=== PATIENT | female | born 1940 | race Caucasian/White ===

== ENCOUNTER → 2017-04-03 | Outpatient (CLI) | payer OTHER ==
[~2017-04-03] VITALS: Ht 152.4 cm; Wt 87.1 kg
[~2017-04-03] MED LIST: AMLODIPINE BESY10 MG PO; ASPIRIN81 M2 PO; BUMEX PO; CALCIUM; CALCIUM PO; CELEBREX 200 M200 MG PO; COLACE1 EAC1; COZAAR 50 MG TA50 M1 PO; CYMBALTA30 MG PO; DILTIAZEM 24HR240 M1 PO; DULCOLAX5 MG PO; FEXOFENADINE H180 MG PO; FISH OIL 1,2001 EAC4 PO; FLEXERIL PO; HAIR, SKIN & N1 EAC1 PO; HYDROCHLOROTHIA25 M1 PO; KETOCONAZOLE; KLOR-CON 10 ER10 MEQ PO; LIORESAL 10 MG10 MG PO; MEDROLDOSEPACK PO; METOCLOPRAMIDE10 MG PO; MOBIC15 MG PO; MOBIC7.5 MG PO; MORPHINE SULFAT15 M1 PO; MS CONTIN 30 MG30 M1 PO; MS CONTIN15 MG PO; MS CONTIN30 MG PO; MULTIVITAMINS PO; NEXIUM40 MG PO; NYSTATIN1 EA10 MC; NYSTATIN15 GM TP; PERCOCET 5-3251 EACH PO; PRAVASTATIN SOD20 MG PO; RANITIDINE HCL300 M1 PO; RESTASIS1 EACH OPHTHALMIC; SERTRALINE HCL100 MG PO; STOOL SOFTNER; TRAZODONE HCL50 MG PO; VITAMIN D2000 UNIT PO; VOLTAREN GEL 1100 G2 TOP; ZANAFLEX4 M1 PO; ZOLOFT 50 MG TA50 M1 PO; [UNRECOGNIZED DRUG - CODE] PO
--- NOTE | ~2017-04-03 | OD ---
[facility] [place] [address] DELIVERY NOTE Name: MAMADOU CAPONE Room #: REG JOSE BarbaAshwin#: [id number] Admission: 04/03/17 Attend Phys: Tad Harding MD Discharge: Date of : 40 Report #: [id number] THIS REPORT FOR: //name// CC: Cora Harding DATE OF SERVICE: 04/03/2017 FOLLOWUP COMPLAINT: Doing pretty good. I am going to have surgery on 05/02 for prolapse colon. FOLLOWUP HISTORY: The patient is a very pleasant 76-year-old female, who has been followed in the pain clinic for a number of years. She has pain and discomfort secondary to lumbar radiculopathy and is treated with opioid therapy. She has found that the pain medications continue to be helpful. They enable her to engage in activities of daily living. She would not be able to participate use. She is having no untoward side effects. She has taken her medications as prescribed. She is having some problems with her colon. She has a prolapse colon and is scheduled to have surgery in 05/02. She continues to use her motorized wheelchair when out and about, and ambulates at home. She has not fallen in the last 3 months. PHYSICAL EXAMINATION: VITAL SIGNS: Blood pressure 130/76, pulse 63, respiratory rate 18, and room air saturations 98%. Height is 5 feet and weight is 87 kilograms. BMI is 37. MUSCULOSKELETAL: The patient has pain and discomfort in her back, with pain radiating down to the right leg, has some pain in the groin area as well. This pain wraps around to the front of her leg and the knee down into the big toe and foot on the right. She has some discomfort in both shoulders. Denies any constipation or drowsiness. IMPRESSION: 1. Chronic pain in the low back area, with opioid therapy. 2. Colon prolapse, scheduled for surgery on 05/02. 3. Hypercholesterolemia. 4. Hypertension. By: [id number] Tad Harding MD /nt
[2017-04-03 10:27] VITALS: BP 130/76
== END ==
LOC: PAIN 03-22 07:12
DX: G89.29 Other chronic pain (principal); E78.00 Pure hypercholesterolemia, unspecified; I10 Essential (primary) hypertension

== ENCOUNTER → 2017-08-21 | Outpatient (CLI) | payer OTHER ==
[~2017-08-21] VITALS: Ht 152.4 cm; Wt 84.4 kg
--- NOTE | ~2017-08-21 | HPC ---
[facility] [place] [address] PAIN MANAGEMENT CONSULTATION Name: MAMADOU CAPONE Room #: REG JOSE Asael#: [id number] Admission: 08/21/17 Attend Phys: Tad Harding MD Discharge: Date of : 40 Report #: [id number] THIS REPORT FOR: //name// CC: Coar Harding DATE OF SERVICE: 08/21/2017 FOLLOWUP COMPLAINT: Things are going good. Here for medications. FOLLOWUP HISTORY: The patient is a 76-year-old female who has been followed in the pain clinic because of chronic pain. She suffers from chronic low back pain. As you recall, she has history of lumbar radiculopathy. She rates her pain as a 6/10. She has some pain in her low back area, pain in her right leg. She feels that her medications are helpful. She continues to take the medications as prescribed. She is having no complications or problems with her medicines. She continues to use a motorized wheelchair. She has not fallen in the last 3 months. PHYSICAL EXAMINATION: Blood pressure 152/80, pulse 52, respiratory rate 18, room air saturation 97%. Height 5 feet, weight 186 pounds, BMI is 36. The patient has pain and discomfort in the lower portion of her back with pain radiating down into her right leg. She has some pain in both shoulders. There is some pain in her right groin. She notes that the pain intensity can be exacerbated by prolonged sitting, bending, and activities of daily living. IMPRESSION: 1. Chronic low back pain with history of lumbar radiculopathy treated with opioid therapy. 2. Hypercholesterolemia. 3. Hypertension. RECOMMENDATIONS: We will continue with her current medical regimen of MS Contin 15 mg 1 p.o. t.i.d. and Percocet 5/325 one p.o. b.i.d. The patient takes 2 tablets at that juncture. She will call us if she has any problems with her medications. We would like to thank you for letting us to participate in her care. We hope she continues to improve. <ELECTRONICALLY SIGNED> By: Tad Harding MD 08/23/17 0826 [id number] Tad Harding MD /[facility]
[2017-08-21 11:29] VITALS: BP 152/80
== END ==
LOC: PAIN 07:34
DX: M54.5 Low back pain (principal); I10 Essential (primary) hypertension; E78.00 Pure hypercholesterolemia, unspecified

== ENCOUNTER → 2017-12-27 | Outpatient (CLI) | payer OTHER ==
[~2017-12-27] VITALS: Ht 152.4 cm; Wt 79.4 kg
--- NOTE | ~2017-12-27 | HPC ---
[facility] [place] [address] PAIN MANAGEMENT CONSULTATION Name: MAMADOU CAPONE Room #: REG JOSE McintoshAshwinZariAshwin#: [id number] Admission: 12/27/17 Attend Phys: Tad Harding MD Discharge: Date of : 40 Report #: [id number] THIS REPORT FOR: //name// CC: Cora Harding DATE OF SERVICE: 12/27/2017 FOLLOWUP COMPLAINT: Here for the medications and I am doing pretty good. FOLLOWUP HISTORY: The patient is a 77-year-old female, who has been followed in the Pain Clinic for quite a number of years. As you recall, she has chronic low back pain. Pain has been quite problematic and has reduced her to ambulate in a motorized wheelchair. She feels that her medications continue to be helpful. She has had no complications from their use since we saw her last. She finds that they continue to enable her to engage in activities of daily living, she would not be not be able to participate in without them. She has had no untoward side effects. She feels her mentation is clear. She rates her pain as an 8/10 today. Continues to have some pain in the right groin and right leg and describes as stabbing, burning and cramping and this is exacerbated with prolonged sitting as well as with bending. ALLERGIES: SULFA, LISINOPRIL, ATARAX, VISTARIL, HYDRALAZINE, LASIX. CURRENT MEDICAL REGIMEN: Percocet 5/325 one p.o. b.i.d., morphine sulfate 15 mg 1 p.o. t.i.d., Restasis 1 drop per eye b.i.d., trazodone 50 mg at bedtime, meloxicam 7.5 mg b.i.d., nystatin cream 15 g topical as needed, Dulcolax 5 mg daily, sertraline 100 mg daily, multivitamin, vitamin D3, baclofen 10 mg q.i.d., pravastatin 20 mg daily, fish oil 1200 mg, amlodipine 10 mg, ranitidine 300 mg, Nexium 40 mg, multivitamin. PAIN CLINIC ASSESSMENT: 1. History of osteoarthritis involving the lower extremities, right and left, not treated for rheumatoid arthritis. 2. Height 5 feet 0 inches, weight 175 pounds, BMI is 34. 3. Vital signs: Blood pressure 149/71, pulse 52, respiratory rate 16, room air saturation 98%. 4. Pain intensity: 8/10. 5. Fall risk: The patient has not fallen. She continues to use her wheelchair. She does need help with standing and walking. 6. Blood thinners: The patient is not on a blood thinner. 7. History of hypertension: The patient is currently being treated for hypertension. 8. Opioid therapy greater than 6 weeks: The patient has signed a contract with [address] [address] PAIN MANAGEMENT CONSULTATION Name: LIBORIOMAMADOU [facility] [id number] Admission: 12/27/17 Attend Phys: Tad Harding MD Discharge: Date of : 40 Report #: [id number] the Pain Clinic in regards to opioid use. 9. Risk assessment tool. 10. Functional assessment tool. 11. Recreational drugs: The patient never uses recreational drugs. 12. Tobacco: The patient has never smoked. 13. Alcohol: The patient denies use of alcoholic beverages. PHYSICAL EXAMINATION: GENERAL: The patient is a well-developed white female. She is slightly obese. The patient appears her stated age. ORIENTATION: The patient is alert and oriented x 3. AFFECT: The patient's affect is appropriate. HEENT: Normocephalic, atraumatic. Extraocular eye muscles intact. Nasal area is without complaint of congestion. Hearing within normal limits. NECK: Without masses or adenopathy. LUNGS: Clear to auscultation. HEART: Regular. ABDOMEN: Protuberant. MUSCULOSKELETAL: Generally normal alignment without significant kyphosis, scoliosis or lordosis. The patient is in an electric wheelchair. Muscle strength in the lower extremity is 4/5 in major muscle groups. Muscle bulk appears symmetrical. IMPRESSION: 1. The patient has pain and discomfort radiating down into the low back area as well as pain radiating to the right leg and the right groin as well as some shoulder discomfort. 2. History of surgery colon prolapse, status post surgery. 3. Hypercholesterolemia. 4. Hypertension. RECOMMENDATIONS: We discussed treatment options with the patient. She will continue with her current medications. States that she is trying to improve her muscle strength to the lower extremities by using a bicycle, which let her propel it while lying on the floor. She will call us if she has any problems with her medications. Overall, things have been going very well with the patient. We have had no problems with her misusing medication. She is always on time. We will provide her with 3 months of Percocet 5/325 one p.o. b.i.d., a total of 120; MS Contin 15 mg t.i.d., a total of 90. She will continue with Percocet 5/325 1-2 tablets p.o. b.i.d. at this juncture. She will call us if she has any problems with her medications. [facility] [address] [place] [address] PAIN MANAGEMENT CONSULTATION Name: MAMADOU CAPONE Room #: REG [facility] Asael#: [id number] Admission: 12/27/17 Attend Phys: Tad Harding MD Discharge: Date of : 40 Report #: [id number] We would like to thank you for letting us participate in her care. Hope she continues to improve. <ELECTRONICALLY SIGNED> By: Tad Harding MD 01/24/18 0811 1352 0235 Tad Harding MD /nt
[2017-12-27 11:12] VITALS: BP 149/71
== END ==
LOC: PAIN 07:12
DX: M54.5 Low back pain (principal); G89.29 Other chronic pain; E78.00 Pure hypercholesterolemia, unspecified; I10 Essential (primary) hypertension; M19.90 Unspecified osteoarthritis, unspecified site; Z79.891 Long term (current) use of opiate analgesic

== ENCOUNTER → 2018-03-28 | Outpatient (CLI) | payer OTHER ==
[~2018-03-28] VITALS: Ht 152.4 cm; Wt 82.4 kg
--- NOTE | ~2018-03-28 | HPC ---
[facility] [address] [place] [address] PAIN MANAGEMENT CONSULTATION Name: LIBORIOMAMADOU Trinh Room #: REG JOSE Vyas#: [id number] Admission: 03/28/18 Attend Phys: Tad Harding MD Discharge: Date of : 40 Report #: [id number] THIS REPORT FOR: //name// CC: Cora Harding DATE OF SERVICE: 03/28/2018 FOLLOWUP COMPLAINT: Things are going pretty well and I am here for medication. FOLLOWUP HISTORY: The patient is a 77-year-old female who has been followed in the pain clinic. As you recall, she has chronic low back pain. She ambulates with use of a motorized wheelchair. Has pain and discomfort, which radiates down into her legs. She has undergone in the past epidural steroid injections. After they were no longer effective, she has been treated with opioid regimen. Finds that her medications continue to be helpful. Has some pain and discomfort in her low back with pain down into the right groin, right leg. Also, notes some arthritic changes and discomfort in her shoulders. Notes a burning, stabbing, cramping discomfort and rates her pain overall as a 4/5. Pain is exacerbated by sitting and bending. improves with repositioning. ALLERGIES: SULFA. MEDICATIONS: Lisinopril, Atarax, Vistaril, hydralazine, Lasix. CURRENT MEDICATIONS: Percocet 5/325 one p.o. b.i.d., morphine sulfate 15 mg 1 p.o. t.i.d., Restasis eye drops b.i.d., trazodone 50 mg at bedtime, Meloxicam 7.5 mg b.i.d., nystatin cream 15 mg topical as needed, Dulcolax 5 mg daily, sertraline 100 mg daily, multivitamin, vitamin D3, baclofen 10 mg q.i.d., pravastatin 20 mg daily, fish oil 200 mg, amlodipine 10 mg, ranitidine 300 mg, Nexium 40 mg and multivitamin. PAIN CLINIC ASSESSMENT: 1. History of osteoarthritis involving lower extremities, right and left. The patient is not being treated for rheumatoid arthritis. 2. Height 5 feet 0 inches, weight 181 pounds, BMI is 35. PHYSICAL EXAMINATION: 1. Blood pressure 158/84, pulse 52, respiratory rate 14, room air saturation 96%. 2. Pain intensity 10. 3. Fall risk. The patient has some need for help with walking. She has not fallen in the last 3 months. 4. The patient is not on a blood thinner. 5. History of hypertension. The patient is being treated for hypertension. 6. Opioid therapy greater than 6 weeks. The [place] [address] PAIN MANAGEMENT CONSULTATION Name: MAMADOU CAPONE Trinh Room #: REG CL Asael#: [id number] Admission: 03/28/18 Attend Phys: Tad Harding MD Discharge: Date of : 40 Report #: [id number] pain clinic that she gets her medication from only one source. 7. Risk assessment tool, low at 2/3. 8. Functional assessment tool 33 indicating moderate problems with activities of daily living secondary to her pain. 9. Recreational drug use. The patient denies use of recreational drugs. 10. Tobacco: The patient has never smoked. 11. Alcohol frequency. The patient denies use of alcoholic beverages. PHYSICAL EXAMINATION: GENERAL: The patient is a well-developed white female. She appears stated age. She is slightly obese. She is sitting in her motorized wheelchair. Affect is appropriate. HEENT: Normocephalic, atraumatic. Extraocular eye muscles intact. Nasal area moist without complaints of congestion. Hearing within normal limits. NECK: Without masses or adenopathy. LUNGS: Clear to auscultation without rhonchi or rales. HEART: Regular rate. S1, S2. ABDOMEN: Protuberant. MUSCULOSKELETAL: Without significant kyphosis, scoliosis or lordosis. The patient is in her electric wheelchair. Muscle strength in lower extremities, 4/5 for the major muscle groups. Muscle bulk appears symmetrical. IMPRESSION: 1. The patient has pain and discomfort radiating down to low ____ back area as well as pain radiating down to her right leg in the groin. Has some shoulder discomfort. 2. History of surgery for colon prolapse, status post surgery, stable at this juncture. 3. Hypercholesterolemia. 4. Hypertension. RECOMMENDATIONS: We discussed treatment options with the patient. We will continue with her current medical regimen. She feels that it is working reasonably well. She is having no problems. Rates her pain as a 4-5. We will renew her medications. A script for oxycodone 5/325 two tabs p.o. b.i.d., total of 120 have been written. Morphine sulfate 15 mg p.o. t.i.d. have been written. Total of 90 per month. Total of 3 months medication has been dispensed. She will call us if she has any problems in the interim. We would like to thank you for letting us participate in her care. We hope she continues to improve. By: [id number] MD sienna Larose
[2018-03-28 10:06] VITALS: BP 158/84
== END ==
LOC: PAIN 07:30
DX: G89.29 Other chronic pain (principal); M54.16 Radiculopathy, lumbar region; E78.00 Pure hypercholesterolemia, unspecified; I10 Essential (primary) hypertension; Z88.2 Allergy status to sulfonamides; Z79.899 Other long term (current) drug therapy

== ENCOUNTER → 2018-05-21 | Outpatient (CLI) | payer OTHER ==
[~2018-05-21] VITALS: Ht 152.4 cm; Wt 82.6 kg
--- NOTE | ~2018-05-21 | HPC ---
[facility] [place] [address] [place] [address] PAIN MANAGEMENT CONSULTATION Name: MAMADOU CAPONE Trinh Room #: REG JOSE Vyas#: [id number] Admission: 05/21/18 Attend Phys: Tad Harding MD Discharge: Date of : 40 Report #: [id number] THIS REPORT FOR: //name// CC: Cora Harding DATE OF SERVICE: 05/21/2018 CHIEF COMPLAINT: "I have noticed some worsening of pain. I was doing some cleaning at home and I twisted and hurt my back. FOLLOWUP HISTORY: The patient is a 77-year-old female who has been followed in the pain clinic for quite a number of years. As you recall, she has some problems with her low back. She has undergone epidural steroid injections in the past. They felt to be efficacious. She has been treated at this juncture with continued opioid therapy. She finds that that has been effective. She states that she was cleaning her house. Does not recall any significant activity, but has noted some wrenching of her back. She has noted pain, which has been more problematic over the last 1-2 weeks. She is having pain, which she rates as an 8-9. It is cramping, burning and stabbing. Bending, sitting and other activities of daily living are more problematic. Also, has pain and discomfort in her shoulders, knees, right groin and right leg. She would like to continue with her current medications. She would like to have her medications modified over the next month to see whether or not she would be able to continue being active with less pain and discomfort. ALLERGIES: SULFA, LISINOPRIL, ATARAX, VISTARIL, HYDRALAZINE, LASIX. CURRENT MEDICATIONS: Percocet 5/325 one p.o. b.i.d., morphine sulfate 15 mg 1 p.o. t.i.d., Restasis eye drops b.i.d., trazodone 50 mg at bedtime, meloxicam 7.5 mg b.i.d., nystatin cream 15 mg topical as needed, Dulcolax 5 mg, sertraline 100 mg daily, multivitamins, vitamin D3, baclofen 10 mg q.i.d., pravastatin 20 mg, fish oil 200 mg, amlodipine 10 mg, ranitidine 300 mg, Nexium 40 mg, and multivitamins. PAIN CLINIC ASSESSMENT: 1. History of osteoarthritis involving lower extremities, right and left. The patient is not being treated for rheumatoid arthritis. 2. Height 5 feet 0 inches. Weight 182 pounds, BMI is 35.5. 3. VITAL SIGNS: Blood pressure 163/73, pulse 50, respiratory rate 16, room air saturation is 100%. 4. Pain intensity 8-9/10. 5. Fall risk. The patient has not fallen in the last 3 months. 6. Blood thinner. The patient is not on a blood thinning medication. 7. Hypertension. The patient is being treated for hypertension. 8. Opioid therapy greater than 6 weeks. The patient is on opioid therapy and [address] [address] PAIN MANAGEMENT CONSULTATION Name: MAMADOU CAPONE Trinh Room #: REG ANAEmily Vyas#: [id number] Admission: 05/21/18 Attend Phys: Tad Harding MD Discharge: Date of : 40 Report #: [id number] gets her medication from one source. 9. Risk assessment tool 2-3, low for use of opioids. 10. Functional assessment tool . 11. Recreational drug use. The patient denies use of recreational drugs. 12. Tobacco: The patient has never smoked. 13. Alcohol: The patient denies use of alcoholic beverages. PHYSICAL EXAMINATION: GENERAL: The patient is a well-developed, well-nourished white female. She appears her stated age. She is slightly overweight. She is sitting in her motorized wheelchair. Her affect is appropriate. She does look somewhat despondent. She states her pain is worse. HEENT: Normocephalic, atraumatic. Extraocular eye muscles are intact. Nasal mucosa without problem. Sclerae nonicteric. Hearing is within normal limits. NECK: Without adenopathy or masses. NECK: No JVD. LUNGS: Clear to auscultation without rhonchi or rales. HEART: Regular rate. S1, S2. ABDOMEN: Protuberant. MUSCULOSKELETAL: Without significant kyphosis, scoliosis or lordosis. The patient is sitting in her electric wheelchair. Upper muscle strength is judged to be 4+/5 for the upper extremities and 4/5 for the lower muscle area in the lower extremities. IMPRESSION: 1. Worsening of pain and discomfort with wrenching of her back doing home activities. 2. History of surgery for colon prolapse status post surgery. 3. Hypercholesterolemia. 4. Hypertension. RECOMMENDATIONS: We discussed treatment option with the patient. The patient feels that her pain has been quite problematic. She would like to have an additional change in her opioid medications for the next few weeks to help get over this pain. We will give her a Medrol Dosepak to note its efficacy. Risks and benefits of opioids were again reviewed. The patient is aware that chronic use of opioid medications can rule them less effective because of chronic use. She would like to continue with her medications. A script BuSpar 15 mg, morphine 2 tablets a.m., 1 midday, 1 in the evening has been provided for the next month. She will take the Medrol Dosepak and note its efficacy. She will call us if she has any problems. [facility] [address] [place] [address] PAIN MANAGEMENT CONSULTATION Name: LIBORIOMAMADOU Room #: [facility] [id number] Admission: 05/21/18 Attend Phys: Tad Harding MD Discharge: Date of : 40 Report #: [id number] We would like to thank you for letting us participate in her care. We hope she continues to improve. <ELECTRONICALLY SIGNED> By: Tad Harding MD 05/23/18 1631 1143 1829 Tad Harding MD /nt
[2018-05-21 10:46] VITALS: BP 163/73
== END ==
LOC: PAIN 06:26
DX: M54.5 Low back pain (principal); E78.00 Pure hypercholesterolemia, unspecified; I10 Essential (primary) hypertension; Z79.891 Long term (current) use of opiate analgesic

== ENCOUNTER → 2018-10-29 | Outpatient (CLI) | payer OTHER ==
[~2018-10-29] VITALS: Ht 152.4 cm; Wt 87.1 kg
[~2018-10-29] MED LIST changes: -SERTRALINE HCL100 MG PO; +ZOLOFT100 MG PO
[2018-10-29 11:19] VITALS: BP 158/71
--- NOTE | 2018-10-29 11:27 | NUR ---
Pain Clinic Assessment: 1. History of Osteoarthritis: Left Lower Extremity Right Lower Extremity History of Rheumatoid Arthritis: Not Applicable 2. Height: 5 ft. 0 in. 152.4 cm. Weight: 192.0 lb. oz. 87.091 kg. Patient's BMI: 37.5 3. Vital Signs: BP: 158/71 Pulse: 50 Resp: 14 Temp: 02 Sat: 99 ECG Mon: 4. Pain Intensity: 7 BACK 5. Fall Risk: Dizziness: N Needs help standing or walking: Y Fallen in the last 3 months: N Fall risk comments: SCOOTER 6. Patient on Blood Thinner: None 7. History of Hypertension: Y 8. Opioid Therapy greater than 6 weeks: Y Opiate Contract Signed: 06/07/16 9. Risk Assessment Tool Provided: LOW RISK 2/3 10. Functional Assessment Tool: 11. Recreational Drug Use: Never Drug Type: Tobacco Use: Never Smoker Tobacco Type: Amount or Packs/day: How Many Years: Alcohol Use: No Frequency: Quant:
--- NOTE | 2018-10-31 14:15 | HPC ---
[facility] [place] [address] PAIN MANAGEMENT CONSULTATION Name: MAMADOU CAPONE Room #: REG JOSE McintoshAshwinZariAshwin#: [id number] Admission: 10/29/18 Attend Phys: Tad Harding MD Discharge: Date of : 40 Report #: [id number] THIS REPORT FOR: //name// CC: Cora Harding DATE OF SERVICE: 10/29/2018 FOLLOWUP COMPLAINT: Here for medications and things are going well, "Happy New Year." HISTORY: The patient is a very pleasant 77-year-old female who has been followed in the Pain Clinic. As you recall, she suffers from chronic low back pain. She has undergone epidural steroid injections in the past. They became less fruitful. Since that time, she has been treated with complex medical management for her pain with opioids. She feels overall that things are going reasonably well. She has not had any problems with the medications. Feels that the medication enable her to engage in activities of daily living, she would not be able to without their use. She feels that she continues to think clearly. ALLERGIES: SULFA, LISINOPRIL, ATARAX, VISTARIL, HYDRALAZINE, LASIX. CURRENT MEDICATIONS: Morphine sulfate 15 mg 1 p.o. t.i.d., Percocet 5/325 one p.o. b.i.d., Restasis eye drops b.i.d., trazodone 50 mg at bedtime, Meloxicam 7.5 mg, nystatin cream topical, Dulcolax 5 mg, sertraline 100 mg, multivitamins, vitamin D3, baclofen 10 mg q.i.d., pravastatin 20 mg, fish oil 200 mg, amlodipine 10 mg, ranitidine 300 mg, Nexium 40 mg, and multivitamin. PAIN CLINIC ASSESSMENT/PQRS: 1. The patient has osteoarthritic changes in her left upper extremity as well as her right lower extremity. 2. Rheumatoid arthritis. The patient is not being treated for rheumatoid arthritis. 3. Height 5 feet 0 inches, weight 192 pounds, BMI 37.5. 4. Vital signs: Blood pressure 158/72, pulse 50, respiratory rate 14, and room air saturation is 99%. 5. Pain intensity -06/06. 6. Fall risk. The patient has not fallen in the last 3 months. She does ride a scooter motorized. 7. Blood thinner. The patient is not on a blood thinning medication. 8. Hypertension. The patient is being treated for hypertension. 9. Opioid therapy greater than 6 weeks. The patient is receiving her medications from one source. Does not have any problems with the medication. 10. Risk assessment tool 2-3, low risk for opioid use. 11. Functional assessment tool 33/70. [address] [address] PAIN MANAGEMENT CONSULTATION Name: MAMADOU CAPONE Room #: REG [facility] Asael#: [id number] Admission: 10/29/18 Attend Phys: Tad Harding MD Discharge: Date of : 40 Report #: [id number] 12. Recreational drug use. The patient denies use of recreational drugs. 13. Tobacco: The patient has never smoked. 14. Alcohol: The patient denies use of alcoholic beverages. PHYSICAL EXAMINATION: GENERAL: The patient is a well-developed, well-nourished white female. Appears her stated age. She is alert and oriented x 3. Her affect is appropriate. The patient is interactive. She is in a motorized wheelchair. HEENT: Normocephalic and atraumatic. Extraocular eye muscles intact. Sclerae nonicteric. Mucous membranes are moist. Hearing is within normal limits. NECK: Without adenopathy or JVD. Good range of motion. LUNGS: Clear to auscultation without rhonchi or rales. HEART: Regular rate. S1, S2. ABDOMEN: Protuberant. Bowel sounds present. MUSCULOSKELETAL: Without significant scoliosis, kyphosis, or lordosis. The patient complains of spasms down in the left lateral portion of her back. Has pain in the upper back area as well. Notes pain in the upper extremities, 4+ strength in the lower extremities. IMPRESSION: 1. Chronic pain and pain down in the low back area. 2. History of colon prolapse status post surgery. 3. Hypercholesterolemia. 4. Hypertension. RECOMMENDATIONS: We discussed treatment options with the patient. Overall, she feels that things are going reasonably well. She is staying as active as she can. Continues to live with her sister. She feels that her medications are working to her benefit. She is able to engage in activity. She would not be able to without their use. She would like to continue with the medication. A script for her medications for the next 3 months of MS Contin 15 mg 1 p.o. t.i.d., Percocet 5/325 one p.o. a total of 4 tablets per day. We would like to thank you for letting us participate in her care. We hope she continues to improve. <ELECTRONICALLY SIGNED> By: Tad Harding MD 10/31/18 1415 [id number] Tad Harding MD /nt
== END ==
LOC: PAIN 08:54
DX: M54.5 Low back pain (principal); G89.29 Other chronic pain; I10 Essential (primary) hypertension; E78.00 Pure hypercholesterolemia, unspecified; Z85.048 Personal history of other malignant neoplasm of rectum, rectosigmoid junction, and anus

== ENCOUNTER → 2019-01-21 | Outpatient (CLI) | payer OTHER ==
[~2019-01-21] VITALS: Ht 152.4 cm; Wt 82.6 kg
[2019-01-21 10:19] VITALS: BP 155/77
--- NOTE | 2019-01-21 10:21 | NUR ---
Pain Clinic Assessment: 1. History of Osteoarthritis: Left Lower Extremity Right Lower Extremity History of Rheumatoid Arthritis: Not Applicable 2. Height: 5 ft. 0 in. 152.4 cm. Weight: 182.0 lb. oz. 82.555 kg. Patient's BMI: 35.5 3. Vital Signs: BP: 155/77 Pulse: 54 Resp: 18 Temp: 02 Sat: 97 ECG Mon: 4. Pain Intensity: 8 5. Fall Risk: Dizziness: N Needs help standing or walking: N Fallen in the last 3 months: N Fall risk comments: SCOOTER 6. Patient on Blood Thinner: None 7. History of Hypertension: Y 8. Opioid Therapy greater than 6 weeks: Y Opiate Contract Signed: 06/07/16 9. Risk Assessment Tool Provided: LOW RISK 2/3 10. Functional Assessment Tool: 11. Recreational Drug Use: Never Drug Type: Tobacco Use: Never Smoker Tobacco Type: Amount or Packs/day: How Many Years: Alcohol Use: No Frequency: Quant:
--- NOTE | 2019-01-26 07:51 | HPC ---
[facility] [address] [place] [address] PAIN MANAGEMENT CONSULTATION Name: LIBORIOLIDYAMAMADOU Trinh Room #: [facility] [id number] Admission: 01/21/19 ������������������ Attend Phys: Viky Adhikari Discharge: ������������������ Date of : 40 Report #: [id number] THIS REPORT FOR: //name// CC: Viky Shepherd [facility] DATE OF SERVICE: 01/21/2019 CHIEF COMPLAINT: Chronic low back pain and bilateral extremity pain. HISTORY OF PRESENT ILLNESS: This is a very pleasant 78-year-old female who returns to the pain clinic today for refill of her medications. She tells me that her pain score has been fairly significant over the winter of 06/06. She tells me it has been a hard winter. She complains of low back pain, knee pain, bilateral leg pain and significant right groin pain that is radiating in her inner thigh to her ankle. She says she is having a burning, sharp, cramping pain. If she repositions and lies down, it does feel better as well as her medications, but it has just been worse this past winter. She would like a refill of her medications today. ALLERGIES: VISTARIL, LISINOPRIL, HYDRALAZINE, LASIX, BACTRIM, AND LATEX. CURRENT LIST OF MEDICATIONS: Oxycodone 5/325 two tablets b.i.d., MS Contin 15 mg 3 times a day, Desyrel 1.5 tablets of 50 mg at bedtime, Restasis drops, meloxicam 7.5 b.i.d., Dulcolax as needed, Zoloft 100 mg daily, multivitamin daily, vitamin D3 daily, baclofen 10 mg 4 times a day, pravastatin 20 mg daily, fish oil daily, amlodipine 5 mg daily, Zantac 300 mg daily, Nexium 40 mg daily, and multivitamin daily. PQRS: 1. The patient has arthritic changes in her upper extremities as well as in her right lower extremity. Denies any rheumatoid arthritis. 2. Height is 5 feet, weight is 182. BMI is 35. 3. Vital signs: 155/77, pulse is 54, respirations 18, oxygen sat is 97%. 4. Pain score 8/10. 5. Fall risk. She denies dizziness. She is in a wheelchair today scooter, but does normally not need help walking. She uses the scooter for long distance, has not fallen in the last 3 months. 6. The patient is not on any blood thinners. She does take medicine for hypertension. 7. Opioid therapy is greater than 6 weeks; therefore, an opioid signed contract is on the chart. 8. Risk assessment tool is low. Functional assessment is 33/70. 9. Recreational drug use, she denies. She is not a smoker and does not drink alcohol. [address] [address] PAIN MANAGEMENT CONSULTATION Name: MAMADOU CAPONE Trinh Room #: REG JOSE Vyas#: [id number] Admission: 01/21/19 ������������������ Attend Phys: Viky Adhikari Discharge: ������������������ Date of : 40 Report #: [id number] We did check the prescription monitoring system. The patient is filling appropriately with her medications in a timely fashion from Dr. Harding with no apparent aberrant behaviors noted. We will check a drug screen on her next visit. The patient tells me she does safeguard her medicines at home. PHYSICAL EXAMINATION: GENERAL: This is a well-developed, well-nourished white female who appears her stated age. She is alert and orientated. Her affect is appropriate. She is in a motorized wheelchair today. HEENT: Normocephalic, atraumatic. Extraocular eye muscles are intact. Mucous membranes are moist. NECK: Without adenopathy or JVD. MUSCULOSKELETAL: Without significant scoliosis, kyphosis or lordosis. The patient does complain of pain in her right groin that radiates down her inner thigh into her foot, which has been increased since her last visit. She also complains of low back pain that is across her belt line area. Her upper extremity strength judged to be 4/5 in upper and lower extremities bilaterally. IMPRESSION: 1. Chronic pain and multiple pain generators. 2. History of colon prolapse, status post surgery. 3. Hypercholesterolemia. 4. Hypertension. We reviewed the fact that opiate medications are being used to provide analgesia adequate to support activities of daily living, not attempting to achieve a specific pain score on the 0-10 Visual Analog Scale. The current opiate medications are providing sufficient analgesia to allow the patient to participate in activities of daily living. The patient is not exhibiting any aberrant behavior suggestive of drug diversion. The patient is not having any adverse reactions to medications. The patient is not suffering from daytime somnolence or mental acuity changes. The patient is managing opiate-induced constipation with appropriate rwkb-qfa-yylqure agents and dietary considerations. The patient was counseled on concern for caution with operating a motor vehicle while using opiate medications. A physical exam was performed and the patient's functional status was evaluated. All patients with back pain were advised against the bed rest greater than 4 days and were advised to return to normal activities. Pain score assessment was noted and the treatment plan was reviewed with the patient. All current medications, both prescribed and OTC were reviewed and reconciled on the electronic medical record. Tobacco screening was accomplished and smoking cessation was advised when indicated. BMI was noted and diet/exercise modification was recommended for all patients following outside normal parameters. [facility] [address] [place] [address] PAIN MANAGEMENT CONSULTATION Name: MAMADOU CAPONE Room #: REG [facility].#: [id number] Admission: 01/21/19 ������������������ Attend Phys: Viky Adhikari Discharge: ������������������ Date of : 40 Report #: [id number] I reviewed with the patient today their responsibilities to safeguard prescription medications, reviewed their responsibility to utilize medications only as prescribed by the physician. They are to seek and receive pain medications only from 1 physician group ( [facility]). They are to use 1 pharmacy and keep the clinic informed if they change pharmacies. Their responsibilities include making followup visits in a timely fashion and to avoid abrupt discontinuation of medication usage. Their responsibilities further include bringing their medications (bottles from the pharmacy with residual pills) to the visit for possible confirmation of pill counts and the patient understands it is their responsibility to submit to random drug screens to ensure both that the medications prescribed are present, and that no other controlled substances are present. All prescriptions provided today were generated electronically. PLAN: 1. We discussed treatment options with the patient today. I did go over the CDC guidelines with her and we determined her morphine milliequivalent is 75 morphine milliequivalent a day. This places her in the middle category per the CDC guidelines; therefore, I explained to her that as the practice of the clinic, we will see her on an every two month basis from now on. The [facility] would like everybody at 90 or below originally of morphine mEq and then if we are able to decrease her to 50 morphine mEq. The patient has been stable on this dose for a long time and doing quite well except for this recent flare in her groin. I find that it is feasible to keep her at her current dose. Therefore, she will be seen as we discussed every 2 months. The patient is agreeable with this and understands these guidelines. 2. The patient did question me regarding Narcan prescription. Her sister thinks that she needs Narcan in the house due to hearing about the opioid crisis on the news. I explained to the patient that we would gladly give her one if we believe that she is a patient that would overdose on her medicines that we will gladly give her a prescription. The patient tells me that she takes them in appropriately and keeps them locked up, so nobody can get them in her house. She does not believe that she needs this prescription, but was wondering since her sister had asked. 3. Dr. Harding did come and see the patient today and we decided to do an x-ray of her right hip 2-view due to this ongoing groin pain that she is experiencing. The patient will take the script for the x-ray and have this done in the next few days. 4. The patient will follow up in 2 months' time. The patient seen with Dr. Harding who collaborated care also today. ��������������������������������������������� <ELECTRONICALLY SIGNED> ���������������������������������������� By: Viky Adhikari ��������������������������������������������� 01/26/19 0751 [id number] Viky Adhikari /bea
== END ==
LOC: PAIN 06:55
DX: G89.29 Other chronic pain (principal); M54.5 Low back pain; E78.00 Pure hypercholesterolemia, unspecified; I10 Essential (primary) hypertension; Z85.048 Personal history of other malignant neoplasm of rectum, rectosigmoid junction, and anus; Z79.899 Other long term (current) drug therapy

== ENCOUNTER → 2019-03-18 | Outpatient (CLI) | payer OTHER ==
[~2019-03-18] VITALS: Ht 152.4 cm; Wt 87.1 kg
--- NOTE | ~2019-03-18 | HPC ---
[facility] [address] [address] PAIN MANAGEMENT CONSULTATION Name: LIBORIOMAMADOU Room #: REG JOSE Vyas#: [id number] Admission: 03/18/19 ������������������ Attend Phys: Viky Adhikari Discharge: ������������������ Date of : 40 Report #: [id number] THIS REPORT FOR: //name// CC: AB Aranda DATE OF SERVICE: 03/18/2019 CHIEF COMPLAINT: Chronic low back pain and bilateral extremity pain. HISTORY OF PRESENT ILLNESS: This is a very pleasant 78-year-old female who returns to the pain clinic today for refill of her medications that she takes for her ongoing low back and bilateral leg pain. Today, she is complaining of significant right thigh and right groin pain. She feels that it does not radiate around from her back. She feels that it initiates near her pubic area that radiates from her groin into her thigh. She tells me she did have her x-rays that we ordered at [facility] and we will obtain those x-rays. She tells me she is having problems lying on her right side now as well as having more pain when she is walking. She rates her pain score as 7/10 today. She tells me that the medications are very helpful. She denies any problems with daytime sleepiness or constipation. She feels that she manages those well with txna-ifx-kfaoxwo medications. The patient tells me that she is scheduled to get a new hoveround scooter. She tells me that some papers are going to be faxed to our office. She has had hers for greater than 5 years. She uses it daily to get around. She is unable to walk any distance without significant pain and the wheelchair helps her be mobile.She tells me that it is worn out. She says it does not charge fully anymore, it only charges one light. When she does attempt to recharge, it will not reach full charge anymore. She tells me that the footboard is cracked and broken, so she has nothing to put her feet on. She has numerous tears in the upholstery from just use that she has used it every day to get about in her house as well as to her doctor's offices, so she would like us to complete the paperwork to fill a new one for her since it needs too many parts that need to be replaced. We will await the [employer] paperwork. ALLERGIES: VISTARIL, LISINOPRIL, HYDROXYZINE, LASIX, BACTRIM, LATEX. CURRENT MEDICATIONS: Percocet 5/325 two tablets b.i.d., morphine sulfate 15 mg 3 times a day, trazodone 50 mg at bedtime, Restasis eyedrops, meloxicam 7.5 mg b.i.d., sertraline 100 mg daily, multivitamin, vitamin D, baclofen 10 mg up to 4 times a day as needed, pravastatin 20 mg daily, fish oil, amlodipine 5 mg daily, Zantac 300 mg daily, Nexium 40 mg daily, multivitamin. [address] [address] PAIN MANAGEMENT CONSULTATION Name: MAMADOU CAPONE Room #: REG JOSE Vyas#: [id number] Admission: 03/18/19 ������������������ Attend Phys: Viky Adhikari Discharge: ������������������ Date of : 40 Report #: [id number] PQRS: 1. She has bilateral lower extremity osteoarthritis as well as in her lumbar back. She denies any rheumatoid arthritis. 2. Height is 5 feet, weight is 190, BMI is 37. 3. Vital signs: Blood pressure 157/84, pulse is 60, respirations 16, oxygen sat is 97%. 4. Pain score is 7/10. 5. Fall risk. Denies dizziness. Does need help walking and standing. Does use a scooter at all times in her house as well as when she is outside her home. She has not fallen in the last 3 months. 6. The patient is not on any blood thinners. She does take medicine for hypertension. 7. Opiate therapy is greater than 6 weeks; therefore, an opiate signed contract is on the chart. Her risk assessment tool is low. Functional assessment is 33/70. 8. Recreational drug use, she denies. She is not a smoker and does not drink alcohol. We did check the prescription monitoring system. The patient is filling appropriately for her medications. She does safeguard her medications at all time. We do need to check a drug screen on this patient. IMAGING: We ordered a 2-view x-ray of her right hip, AP and frogleg lateral, which showed mild osteoarthritis of the right hip and partially imaged osteoarthritis in her right SI joint and osteopenia, no fractures present. IMPRESSION: 1. Chronic pain with multiple pain generators. 2. Right hip pain. 3. Osteoarthritis. 4. Complex medical management under terms of written opioid agreement. We reviewed the fact that opiate medications are being used to provide analgesia adequate to support activities of daily living, not attempting to achieve a specific pain score on the 0-10 Visual Analog Scale. The current opiate medications are providing sufficient analgesia to allow the patient to participate in activities of daily living. The patient is not exhibiting any aberrant behavior suggestive of drug diversion. The patient is not having any adverse reactions to medications. The patient is not suffering from daytime somnolence or mental acuity changes. The patient is managing opiate-induced constipation with appropriate ffke-rda-qmzvttt agents and dietary considerations. The patient was counseled on concern for caution with operating a motor vehicle while using opiate medications. A physical exam was performed and the patient's functional status was evaluated. All patients with back pain were advised against the bed rest greater than 4 [facility] [address] [place] [address] PAIN MANAGEMENT CONSULTATION Name: MAMADOU CAPONE Room #: REG [facility]#: [id number] Admission: 03/18/19 ������������������ Attend Phys: Viky Adhikari Discharge: ������������������ Date of : 40 Report #: [id number] days and were advised to return to normal activities. Pain score assessment was noted and the treatment plan was reviewed with the patient. All current medications, both prescribed and OTC were reviewed and reconciled on the electronic medical record. Tobacco screening was accomplished and smoking cessation was advised when indicated. BMI was noted and diet/exercise modification was recommended for all patients following outside normal parameters. I reviewed with the patient today their responsibilities to safeguard prescription medications, reviewed their responsibility to utilize medications only as prescribed by the physician. They are to seek and receive pain medications only from 1 physician group ([facility]). They are to use 1 pharmacy and keep the clinic informed if they change pharmacies. Their responsibilities include making followup visits in a timely fashion and to avoid abrupt discontinuation of medication usage. Their responsibilities further include bringing their medications (bottles from the pharmacy with residual pills) to the visit for possible confirmation of pill counts and the patient understands it is their responsibility to submit to random drug screens to ensure both that the medications prescribed are present, and that no other controlled substances are present. All prescriptions provided today were generated electronically. PLAN: 1. We discussed treatment options with the patient today. We reviewed her x-ray results. I spoke with Dr. Harding who did see the patient as well today and thinks that possibly a right hip injection might be beneficial to see if that would help decrease some of her pain that she is feeling. If this does not warrant any relief, then we will consider ordering MRI of her right hip and pelvis to see if there is a labrum tear that may be present. The patient is agreeable with this. She will call to schedule the injection with her time that works for her family member. 2. Scripts given today for MS Contin 15 mg t.i.d., #90 for today and 4 weeks release and oxycodone 5/325, #120 for today and 4-week release. This places the current morphine mEq at 75 mg; therefore, she is seen in the clinic every 2 months. 3. We will complete the [employer] paperwork for obtaining in a scooter for her since hers has had significant wear and tear over the years and use. It does need to be replaced. Once it is faxed to our office, we have called them two times to fax us the paperwork. She uses this 4. The patient is seen in collaboration with Dr. Martin Harding. ��������������������������������������������� ���������������������������������������� By: ��������������������������������������������� [id number] Viky Adhikari /bea
[2019-03-18 10:02] VITALS: BP 157/84
--- NOTE | 2019-03-18 10:15 | NUR ---
Pain Clinic Assessment: 1. History of Osteoarthritis: Left Lower Extremity Right Lower Extremity History of Rheumatoid Arthritis: Not Applicable 2. Height: 5 ft. 0 in. 152.4 cm. Weight: 192.0 lb. oz. 87.091 kg. Patient's BMI: 37.5 3. Vital Signs: BP: 157/84 Pulse: 60 Resp: 16 Temp: 02 Sat: 97 ECG Mon: 4. Pain Intensity: 7 5. Fall Risk: Dizziness: N Needs help standing or walking: Y Fallen in the last 3 months: N Fall risk comments: SCOOTER 6. Patient on Blood Thinner: None 7. History of Hypertension: Y 8. Opioid Therapy greater than 6 weeks: Y Opiate Contract Signed: 06/07/16 9. Risk Assessment Tool Provided: LOW RISK 2/3 10. Functional Assessment Tool: 11. Recreational Drug Use: Never Drug Type: Tobacco Use: Never Smoker Tobacco Type: Amount or Packs/day: How Many Years: Alcohol Use: No Frequency: Quant:
== END ==
LOC: PAIN 07:04
DX: M54.5 Low back pain (principal); M25.551 Pain in right hip; G89.29 Other chronic pain; M19.90 Unspecified osteoarthritis, unspecified site; Z88.8 Allergy status to other drugs, medicaments and biological substances; Z91.040 Latex allergy status; Z79.899 Other long term (current) drug therapy; Z79.891 Long term (current) use of opiate analgesic

== ENCOUNTER → 2019-05-13 | Outpatient (CLI) | payer OTHER ==
[~2019-05-13] VITALS: Ht 152.4 cm; Wt 87.1 kg
--- NOTE | ~2019-05-13 | HPC ---
[facility] [address] [place] [address] PAIN MANAGEMENT CONSULTATION Name: MAMADOU CAPONE Trinh Room #: REG ANAEmily Vyas#: [id number] Admission: 05/13/19 ������������������ Attend Phys: Tad Harding MD Discharge: ������������������ Date of : 40 Report #: [id number] THIS REPORT FOR: //name// CC: AB Harding DATE OF SERVICE: 05/13/2019 CHIEF COMPLAINT: Here for medication renewal. HISTORY: The patient is a very pleasant 78-year-old female who has been followed in the pain clinic for years. As you may recall, she has chronic pain. She has undergone treatments in the past with epidural steroid injections and other modalities, which she has found opioid therapy to be the most beneficial at this juncture. She continues to use her medications as prescribed. She feels that the medications are helpful and improve her level of comfort. She has pain in her low back. Also, has pain in her shoulders, knees, groin and legs. Because of her condition for a number of years she has been unable to walk for any significant length of time. She ambulates with use of a walker while at home as well as a cart. The patient began to have problems with her mobile chair. The patient has poor flexibility. Does require assistance with some activities of daily living. Does live with her sister. The patient continues to have multiple pain generators in her right hip, suffers from osteoarthritis and has had a stroke in the past. These have all made it difficult for her to be as flexible and had the same dexterity she had prior to these encumbrances. She states that she has a new Hoveround scooter. Unfortunately, she is still not able to take advantage of it secondary to the lift in her van. She is unable to get the scooter into the vehicle. She states that in the next few days she is hoping that a new lift device will be active and she will be able to then take advantage of her scooter. ALLERGIES: VISTARIL, LISINOPRIL, HYDROXYZINE, LASIX, BACTRIM, LATEX. CURRENT MEDICATIONS: Percocet 5/325 one p.o. b.i.d., morphine sulfate 15 mg t.i.d., tizanidine 50 mg at bedtime, Restasis eye drops, Meloxicam 7.5 mg b.i.d., sertraline 100 mg daily, multivitamins, vitamin D, baclofen 10 mg up to 4 times daily, pravastatin 20 mg daily, fish oil, amlodipine 5 mg daily, Zanaflex 300 mg, Nexium 40 mg, multivitamins. PAIN CLINIC ASSESSMENT/PQRS: 1. The patient has bilateral lower extremity osteoarthritis as well as lumbar problems. Denies being treated for rheumatoid arthritis. 2. Height 5 feet, weight 192 pounds, BMI is 37.5. 3. Vital Signs: Blood pressure 144/68, pulse 57, respiratory rate 16, room air [address] [address] PAIN MANAGEMENT CONSULTATION Name: LIBORIOMAMADOU Tsang Room #: REG CLI Asael#: [id number] Admission: 05/13/19 ������������������ Attend Phys: Tad Harding MD Discharge: ������������������ Date of : 40 Report #: [id number] saturation 97%. 4. Pain intensity 8/10. 5. Fall history: The patient has not fallen in the last 3 months. She does ambulate with use of a scooter as well as with use of a walker at home. 6. Blood thinner. The patient is not on a blood thinning medication. 7. Hypertension. The patient is being treated for hypertension. 8. Opioid greater than 6 weeks. The patient receives her medication from one source, the pain clinic. 9. Risk assessment tool, low for opioids 11/30. 10. Functional assessment tool . 11. Recreational drug use. The patient denies. 12. Tobacco: The patient denies. 13. Alcohol: The patient denies frequent use of alcoholic beverages. PHYSICAL EXAMINATION: GENERAL: The patient is a well-developed, well-nourished white female. Appears her stated age. She is alert and oriented x 3. Her affect is appropriate. Speech is slow. HEENT: Normocephalic, atraumatic. Extraocular eye muscles intact. Sclerae nonicteric. Mucous membranes are moist. HEART: Regular rate. ABDOMEN: Slightly protuberant, bowel sounds present. EXTREMITIES: Upper extremity muscle strength is judged to be 4+/5 for the major muscle groups in the upper extremity. Lower extremity, the patient has pain and discomfort in the lower portion of her back. Has limited range of motion. Lower extremity muscle strength is judged to be 4/5 for the major muscle groups in the lower extremity. IMPRESSION: 1. Chronic pain with multiple pain generators. 2. Right hip pain, osteoarthritis involving the SI joints. Complex medical management with use of opioids. 3. History of cerebrovascular accident. RECOMMENDATIONS: We discussed treatment options with the patient. She continues to find that her medications are helpful. She has been having a significantly difficult time with her scooter. There is difficulty with the pneumatic tires. She is unable to physically to bend down get in position and the air up the tires. This is a great encumbrance upon her. Given her history of back pain and physical limitations as a result of her stroke. We suggest that the patient's scooter in an effort to afford her ability to ambulate and remain active with the least amount of problem, received her scooter with foam tires rather than pneumatic tires. We would like to thank you for letting us participate in her care. Hopefully, the will note the patient's need for pneumatic tires, given her history of stroke, difficulty ambulating, except with a cane and walker and inability to stoop down and air up the pneumatic tires. [facility] [address] [place] [address] PAIN MANAGEMENT CONSULTATION Name: MAMADOU CAPONE Trinh Room #: REG [facility]#: [id number] Admission: 05/13/19 ������������������ Attend Phys: Tad Harding MD Discharge: ������������������ Date of : 40 Report #: [id number] We would like to thank you for letting us participate in her care. We hope she continues to improve. ��������������������������������������������� ���������������������������������������� By: ��������������������������������������������� [id number] Tad Harding MD /DIANE
[2019-05-13 10:53] VITALS: BP 144/68
--- NOTE | 2019-05-13 11:19 | NUR ---
Pain Clinic Assessment: 1. History of Osteoarthritis: Left Lower Extremity Right Lower Extremity History of Rheumatoid Arthritis: Not Applicable 2. Height: 5 ft. 0 in. 152.4 cm. Weight: 192.0 lb. oz. 87.091 kg. Patient's BMI: 37.5 3. Vital Signs: BP: 144/68 Pulse: 57 Resp: 16 Temp: 02 Sat: 97 ECG Mon: 4. Pain Intensity: 8 5. Fall Risk: Dizziness: N Needs help standing or walking: Y Fallen in the last 3 months: N Fall risk comments: SCOOTER 6. Patient on Blood Thinner: None 7. History of Hypertension: Y 8. Opioid Therapy greater than 6 weeks: Y Opiate Contract Signed: 06/07/16 9. Risk Assessment Tool Provided: LOW RISK 2/3 10. Functional Assessment Tool: 11. Recreational Drug Use: Never Drug Type: Tobacco Use: Never Smoker Tobacco Type: Amount or Packs/day: How Many Years: Alcohol Use: No Frequency: Quant:
== END ==
LOC: PAIN 10:34
DX: M25.551 Pain in right hip (principal); M47.898 Other spondylosis, sacral and sacrococcygeal region; G89.29 Other chronic pain; Z79.891 Long term (current) use of opiate analgesic; Z86.73 Personal history of transient ischemic attack (TIA), and cerebral infarction without residual deficits

== ENCOUNTER → 2019-07-13 | Outpatient (CLI) | payer OTHER ==
[~2019-07-13] VITALS: Ht 152.4 cm; Wt 82.6 kg
[~2019-07-13] MED LIST changes: +NARCAN4 MG NASAL
[2019-07-13 14:28] VITALS: BP 137/67
--- NOTE | 2019-07-13 14:47 | NUR ---
Pain Clinic Assessment: 1. History of Osteoarthritis: Left Lower Extremity Right Lower Extremity History of Rheumatoid Arthritis: Not Applicable 2. Height: 5 ft. 0 in. 152.4 cm. Weight: 182.0 lb. oz. 82.555 kg. Patient's BMI: 35.5 3. Vital Signs: BP: 137/67 Pulse: 58 Resp: 16 Temp: 02 Sat: 98 ECG Mon: 4. Pain Intensity: 7 5. Fall Risk: Dizziness: N Needs help standing or walking: Y Fallen in the last 3 months: N Fall risk comments: SCOOTER 6. Patient on Blood Thinner: None 7. History of Hypertension: Y 8. Opioid Therapy greater than 6 weeks: Y Opiate Contract Signed: 06/07/16 9. Risk Assessment Tool Provided: LOW RISK 2/3 10. Functional Assessment Tool: 11. Recreational Drug Use: Never Drug Type: Tobacco Use: Never Smoker Tobacco Type: Amount or Packs/day: How Many Years: Alcohol Use: No Frequency: Quant:
--- NOTE | 2019-07-14 07:57 | HPC ---
[facility] [address] [place] [address] PAIN MANAGEMENT CONSULTATION Name: LIBORIOMAMADOU Trinh Room #: REG [facility].#: [id number] Admission: 07/13/19 ������������������ Attend Phys: Viky Adhikari Discharge: ������������������ Date of : 40 Report #: [id number] THIS REPORT FOR: //name// CC: AB Adhikari [facility] physician/PCP DATE OF SERVICE: 07/13/2019 CHIEF COMPLAINT: Chronic pain low back and bilateral extremity pain. HISTORY OF PRESENT ILLNESS: This is a 78-year-old female who returns to the pain clinic today for a refill of her medications that she uses to help treat her low back pain and bilateral shoulder and leg pain. She reports a pain score of 7/10 today. It is a sharp, stabbing, burning pain, worse with walking and worse as the day progresses, but she finds her medication and repositioning very helpful. She also is here in her electric scooter that she uses to help with transportation issues and walking very long distances. She would like a refill of her oxycodone and morphine today. ALLERGIES: VISTARIL, LISINOPRIL, ATARAX, LASIX, BACTRIM, and LATEX. CURRENT LIST OF MEDICATIONS: Oxycodone 5/325 two tablets b.i.d., morphine sulfate 15 mg t.i.d., trazodone, Restasis, meloxicam, sertraline, multivitamin, vitamin D, baclofen, pravastatin, fish oil, amlodipine, Zantac, Nexium and multivitamin. PQRS: 1. She has bilateral lower extremity osteoarthritis as well as lumbar arthritis. Denies being treated for rheumatoid arthritis. 2. Height is 5 feet, weight is 182, BMI is 35. 3. Vital signs 137/67, pulse is 58, respirations 16, oxygen sat is 98. 4. Pain score is 7/10. 5. Denies dizziness. Does need help walking and standing. Has an electric wheelchair to help assist with this, has not fallen in the last 3 months. 6. The patient is not on any blood thinners, but does take medicine for hypertension. 7. Opiate therapy is greater than 6 weeks; therefore, an opioid signed contract is on the chart. Risk assessment tool is low. Functional assessment is 33/70. 8. Recreational drug use, she denies. She is not a smoker and does not drink alcohol. We did check the prescription monitoring system. The patient is filling appropriately for her medications in a timely fashion and there is a recent drug screen on the chart as well that is appropriate for her medications. [address] [address] PAIN MANAGEMENT CONSULTATION Name: LIDYA CAPONEJAVI Tsang Room #: REG JOSE Vyas#: [id number] Admission: 07/13/19 ������������������ Attend Phys: Viky Adhikari Discharge: ������������������ Date of : 40 Report #: [id number] PHYSICAL EXAMINATION: GENERAL: This is a well-developed, well-nourished white female who appears her stated age, placing her current pain score today at 7/10. HEENT: Normocephalic, atraumatic. Extraocular eye muscles are intact. Mucous membranes are moist. ABDOMEN: Slightly protuberant. Bowel sounds present. EXTREMITIES: Pain and discomfort in the lower portion of her back. She has limited range of motion. Her lower extremity strength is judged to be 4/5 for all major muscle groups in her upper and lower extremities. When she ambulates, she does have an antalgic gait. She is in her electric wheelchair presently today. IMPRESSION: 1. Chronic pain with multiple pain generators. 2. Right hip pain. 3. Osteoarthritis involving SI joints. 4. Complex medical management under terms of written opioid agreement. 5. History of cerebrovascular accident. We reviewed the fact that opiate medications are being used to provide analgesia adequate to support activities of daily living, not attempting to achieve a specific pain score on the 0-10 Visual Analog Scale. The current opiate medications are providing sufficient analgesia to allow the patient to participate in activities of daily living. The patient is not exhibiting any aberrant behavior suggestive of drug diversion. The patient is not having any adverse reactions to medications. The patient is not suffering from daytime somnolence or mental acuity changes. The patient is managing opiate-induced constipation with appropriate yxaj-jmc-vhldqso agents and dietary considerations. The patient was counseled on concern for caution with operating a motor vehicle while using opiate medications. A physical exam was performed and the patient's functional status was evaluated. All patients with back pain were advised against the bed rest greater than 4 days and were advised to return to normal activities. Pain score assessment was noted and the treatment plan was reviewed with the patient. All current medications, both prescribed and OTC were reviewed and reconciled on the electronic medical record. Tobacco screening was accomplished and smoking cessation was advised when indicated. BMI was noted and diet/exercise modification was recommended for all patients following outside normal parameters. I reviewed with the patient today their responsibilities to safeguard prescription medications, reviewed their responsibility to utilize medications only as prescribed by the physician. They are to seek and receive pain medications only from 1 physician group ([facility]). They are to use 1 pharmacy and keep the clinic informed if they change pharmacies. Their [address] [address] PAIN MANAGEMENT CONSULTATION Name: MAMADOU CAPONE Room #: REG [facility]#: [id number] Admission: 07/13/19 ������������������ Attend Phys: Viky Adhikari Discharge: ������������������ Date of : 40 Report #: [id number] responsibilities include making followup visits in a timely fashion and to avoid abrupt discontinuation of medication usage. Their responsibilities further include bringing their medications (bottles from the pharmacy with residual pills) to the visit for possible confirmation of pill counts and the patient understands it is their responsibility to submit to random drug screens to ensure both that the medications prescribed are present, and that no other controlled substances are present. All prescriptions provided today were generated electronically. PLAN: 1. The patient would like a refill of her current medications. She is finding these very beneficial in controlling her pain and has minimal side effects as far as constipation or daytime sleepiness, which she denies. She has been on these medications for quite some time and tolerating them quite well. Scripts given today for MS Contin 15 mg t.i.d. #90 as well as Percocet 5/325. The patient takes 2 in the morning and 2 at night, quantity 120. These meds were released for today and 4 weeks from now. 2. According to the prescription monitoring system, the patient is on 75 morphine milliequivalents per day. 3. The patient is seen in collaboration with Dr. Andrea Diez. The patient will return in 2 months and make an appointment on the Dr. Harding . ��������������������������������������������� <ELECTRONICALLY SIGNED> ���������������������������������������� By: Viky Adhikari ��������������������������������������������� 07/14/19 0757 [id number] Viky Adhikari /bea
== END ==
LOC: PAIN 04-01 07:00
DX: M47.898 Other spondylosis, sacral and sacrococcygeal region (principal); I63.9 Cerebral infarction, unspecified; Z88.8 Allergy status to other drugs, medicaments and biological substances; Z79.899 Other long term (current) drug therapy; Z79.891 Long term (current) use of opiate analgesic

== ENCOUNTER → 2019-09-11 | Outpatient (CLI) | payer OTHER ==
[~2019-09-11] VITALS: Ht 152.4 cm; Wt 87.1 kg
[2019-09-11 10:38] VITALS: BP 151/84
--- NOTE | 2019-09-11 10:54 | NUR ---
Pain Clinic Assessment: 1. History of Osteoarthritis: Left Lower Extremity Right Lower Extremity History of Rheumatoid Arthritis: Not Applicable 2. Height: 5 ft. 0 in. 152.4 cm. Weight: 192.0 lb. oz. 87.091 kg. Patient's BMI: 37.5 3. Vital Signs: BP: 151/84 Pulse: 56 Resp: 16 Temp: 02 Sat: 100 ECG Mon: 4. Pain Intensity: 7.5 5. Fall Risk: Dizziness: N Needs help standing or walking: Y Fallen in the last 3 months: N Fall risk comments: SCOOTER 6. Patient on Blood Thinner: None 7. History of Hypertension: Y 8. Opioid Therapy greater than 6 weeks: Y Opiate Contract Signed: 06/07/16 9. Risk Assessment Tool Provided: LOW RISK 2/3 10. Functional Assessment Tool: 11. Recreational Drug Use: Never Drug Type: Tobacco Use: Never Smoker Tobacco Type: Amount or Packs/day: How Many Years: Alcohol Use: No Frequency: Quant:
--- NOTE | 2019-09-14 11:56 | HPC ---
[facility] [address] [place] [address] PAIN MANAGEMENT CONSULTATION Name: LIBORIOMAMADOU Trinh Room #: [facility] [id number] Admission: 09/11/19 Attend Phys: Viky Adhikari Discharge: Date of : 40 Report #: [id number] THIS REPORT FOR: //name// CC: AB Adhikari Physician staff DATE OF SERVICE: 09/11/2019 CHIEF COMPLAINT: Chronic low back pain and bilateral extremity pain. HISTORY OF PRESENT ILLNESS: This is a very pleasant 78-year-old female, who returns to the pain clinic today for a refill of her medications. She reports she did take her last oxycodone today, rating her pain score at 7-1/2. Her lower back is most problematic as well as her left shoulder today. She does have though ongoing knee pain and bilateral leg pain. She denies any problem with constipation as long as she watches her diet and she does take a scheduled nap every day, so she denies daytime somnolence. She rates her pain, says it is worse with walking and progresses as the day goes on, that finds the medication and rest beneficial. She is able to do things around her house that she is needed to do as long as she does have her electric wheelchair to help since walking long distance increases her pain. ALLERGIES: VISTARIL, LISINOPRIL, ATARAX, LASIX, BACTRIM, and LATEX. CURRENT LIST OF MEDICATIONS: Oxycodone 5/325 up to 4 tablets a day p.r.n., MS Contin 15 mg t.i.d., Desyrel 50 mg at bedtime, Restasis drops, meloxicam 7.5 mg b.i.d., nystatin, Dulcolax 5 mg daily, Zoloft 100 mg daily, multivitamin, vitamin D, fish oil, Nexium, baclofen 10 mg q.i.d., pravastatin 20 mg daily, and amlodipine 5 mg daily. PQRS: 1. She has bilateral lower extremity osteoarthritis as well as spinal stenosis in her spine. Denies any rheumatoid arthritis. 2. Height is 5 feet, weight is 192, and BMI is 37. 3. Vital signs 151/84, pulse is 56, respirations 16, and oxygen sat is 100. 4. Pain score is 7-1/2. 5. Denies dizziness. Does need help walking. She uses a scooter and has not fallen in the last 3 months. 6. The patient is not on any blood thinners, but does take medicine for hypertension. 7. Opioid therapy is greater than 6 weeks; therefore, an opioid signed contract is on the chart. Risk assessment tool is low. Functional assessment is 33/70. 8. Recreational drug use, she denies. She is not a smoker and does not drink alcohol. [address] [address] PAIN MANAGEMENT CONSULTATION Name: MAMADOU CAPONE Trinh Room #: REG JOSE Vyas#: [id number] Admission: 09/11/19 Attend Phys: Viky Adhikari Discharge: Date of : 40 Report #: [id number] According to the prescription monitoring system, the patient is filling appropriately, though her medicines are not together being filled. She is due today for her oxycodone, but not quite for her morphine. She has no aberrant fills, only filling from our prescribed doctors. There is a recent drug screen in the chart that is appropriate for her medications. PHYSICAL EXAMINATION: GENERAL: This is an alert and oriented 78-year-old female, who is slightly obese. She appears her stated age, placing her current pain score at 7-1/2. She is a good historian. HEENT: Normocephalic and atraumatic. Extraocular eye muscles are intact. Mucous membranes are moist. EXTREMITIES: She has pain in her left shoulder today with abduction. She has lower extremity strength judged to be 4/5 in all major muscle groups. She is deconditioned. She uses electric wheelchair. She does walk with an antalgic gait and has pain across her lumbar spine that radiates into her bilateral legs. IMPRESSION: 1. Chronic pain with multiple pain generators. 2. Right hip pain. 3. Osteoarthritis involving multiple joints. 4. Complex medical management under terms of written opioid agreement. 5. History of cerebrovascular accident. We reviewed the fact that opiate medications are being used to provide analgesia adequate to support activities of daily living, not attempting to achieve a specific pain score on the 0-10 Visual Analog Scale. The current opiate medications are providing sufficient analgesia to allow the patient to participate in activities of daily living. The patient is not exhibiting any aberrant behavior suggestive of drug diversion. The patient is not having any adverse reactions to medications. The patient is not suffering from daytime somnolence or mental acuity changes. The patient is managing opiate-induced constipation with appropriate [id number]-[id number] agents and dietary considerations. The patient was counseled on concern for caution with operating a motor vehicle while using opiate medications. A physical exam was performed and the patient's functional status was evaluated. All patients with back pain were advised against the bed rest greater than 4 days and were advised to return to normal activities. Pain score assessment was noted and the treatment plan was reviewed with the patient. All current medications, both prescribed and OTC were reviewed and reconciled on the electronic medical record. Tobacco screening was accomplished and smoking cessation was advised when indicated. BMI was noted and diet/exercise modification was recommended for all patients following outside normal parameters. [facility] [address] [place] [address] PAIN MANAGEMENT CONSULTATION Name: MAMADOU CAPONE Room #: REG [facility].#: [id number] Admission: 09/11/19 Attend Phys: Viky Adhikari Discharge: Date of : 40 Report #: [id number] I reviewed with the patient today their responsibilities to safeguard prescription medications, reviewed their responsibility to utilize medications only as prescribed by the physician. They are to seek and receive pain medications only from 1 physician group ( [facility]). They are to use 1 pharmacy and keep the clinic informed if they change pharmacies. Their responsibilities include making followup visits in a timely fashion and to avoid abrupt discontinuation of medication usage. Their responsibilities further include bringing their medications (bottles from the pharmacy with residual pills) to the visit for possible confirmation of pill counts and the patient understands it is their responsibility to submit to random drug screens to ensure both that the medications prescribed are present, and that no other controlled substances are present. All prescriptions provided today were generated electronically. PLAN: 1. We discussed treatment options with the patient today. The patient finds her pain medications very beneficial in helping her do her daily activities, though with the weather changes, her pain has increased slightly. Scripts given today for MS Contin 15 mg, #90, for today and 4-week release and Percocet 5/325, #120 for today and 4-week release. This does place the patient at 75 morphine mEq a day, according to the CDC guidelines. 2. We did discuss patient's ongoing left shoulder pain. We realize she is on meloxicam. We did discuss Voltaren gel to use it as needed periodically and we also discussed Salonpas tqxr-fea-uplqhks, which is lidocaine. The patient believes she would like to try the lidocaine patches first. 3. The patient is seen in collaboration with Dr. Martin Harding. She will return in 2 months' time. <ELECTRONICALLY SIGNED> By: Viky Adhikari 09/14/19 1156 [id number] [id number] Viky Adhikari /nt
== END ==
LOC: PAIN 06:47
DX: M15.0 Primary generalized (osteo)arthritis (principal); M25.551 Pain in right hip; M54.5 Low back pain; Z79.891 Long term (current) use of opiate analgesic; Z86.73 Personal history of transient ischemic attack (TIA), and cerebral infarction without residual deficits

== ENCOUNTER → 2019-11-11 | Outpatient (CLI) | payer OTHER ==
[~2019-11-11] VITALS: Ht 152.4 cm; Wt 87.5 kg
[2019-11-11 09:47] VITALS: BP 158/74
--- NOTE | 2019-11-11 10:03 | NUR ---
Pain Clinic Assessment: 1. History of Osteoarthritis: Left Lower Extremity Right Lower Extremity History of Rheumatoid Arthritis: Not Applicable 2. Height: 5 ft. 0 in. 152.4 cm. Weight: 193.0 lb. oz. 87.544 kg. Patient's BMI: 37.7 3. Vital Signs: BP: 158/74 Pulse: 56 Resp: 16 Temp: 02 Sat: 100 ECG Mon: 4. Pain Intensity: 7-8 5. Fall Risk: Dizziness: N Needs help standing or walking: Y Fallen in the last 3 months: N Fall risk comments: SCOOTER 6. Patient on Blood Thinner: None 7. History of Hypertension: Y 8. Opioid Therapy greater than 6 weeks: Y Opiate Contract Signed: 06/07/16 9. Risk Assessment Tool Provided: 4-MODERATE 10. Functional Assessment Tool: 11. Recreational Drug Use: Never Drug Type: Tobacco Use: Never Smoker Tobacco Type: Amount or Packs/day: How Many Years: Alcohol Use: No Frequency: Quant:
--- NOTE | 2019-12-04 08:40 | HPC ---
[facility] [place] [place] [address] PAIN MANAGEMENT CONSULTATION Name: MAMADOU CAPONE Room #: REG JOSE Barba#: [id number] Admission: 11/11/19 Attend Phys: Tad Harding MD Discharge: Date of : 40 Report #: [id number] THIS REPORT FOR: cc: AB FERNANDES Physician not on staff Tad Harding MD ~ THIS REPORT FOR: //name// CC: AB Harding Physician staff DATE OF SERVICE: 11/11/2019 CHIEF COMPLAINT: The medication is still helpful. HISTORY: The patient is a 79-year-old female who has been followed in the pain clinic because of chronic pain. She has pain and discomfort, which is radiating down into the lower portion of her back. She has described her pain as a 7/8. She has tried a number of modalities to help control her pain. She does ambulate in a motor scooter. She has pain in her shoulders, knees, and groin area. She uses a walker while at home. She has returned today with the hopes of renewing her medications. ALLERGIES: VISTARIL, LISINOPRIL, HYDROXYZINE, LASIX, BACTRIM, LATEX. CURRENT MEDICATIONS: Percocet 5 mg one p.o. b.i.d., morphine sulfate 15 mg t.i.d., tizanidine 50 mg at bedtime, Restasis eyedrops, Meloxicam 7.5 mg b.i.d., sertraline 100 mg, multivitamins, vitamin D, baclofen 10 mg up to 4 times daily, pravastatin 20 mg daily, fish oil, amlodipine 5 mg, Zanaflex 300 mg, Nexium 40 mg, multivitamins. PAIN CLINIC ASSESSMENT AND PQRS: 1. The patient has pain and discomfort with osteoarthritic changes in her lower extremity right, lower extremity left. The patient is not being treated for rheumatoid arthritis. 2. Height 5 feet 0 inches, weight 193 pounds, BMI is 37.7. 3. Vital signs: Blood pressure 158/74, pulse 56, respiratory rate 16, room air saturations 100%. 4. Pain intensity 7-8/10. 5. Fall history: The patient is riding a scooter. She has not fallen since we saw her last. 6. Blood thinner. The patient is not on a blood thinning medication. 7. Hypertension. The patient is being treated for hypertension. 8. Opioids greater than 6 weeks. 9. Risk assessment tool, moderate [place] [address] PAIN MANAGEMENT CONSULTATION Name: MAMADOU CAPONE Room #: REG [facility]#: [id number] Admission: 11/11/19 Attend Phys: Tad Harding MD Discharge: Date of : 40 Report #: [id number] 10. Functional assessment tool . 11. Recreational drug use: The patient denies. 12. Tobacco: The patient has never smoked. 13. Alcohol: The patient denies frequent use of alcoholic beverages. PHYSICAL EXAMINATION: GENERAL: The patient is a well-developed, well-nourished white female. Appears her stated age. She is alert and oriented x 3. Her affect is appropriate. Speech is fluent. HEENT: Normocephalic, atraumatic. Extraocular eye muscles intact. Sclerae nonicteric. Mucous membranes moist. NECK: Without adenopathy or JVD. LUNGS: Generally clear. ABDOMEN: Protuberant. Bowel sounds present. EXTREMITIES: Upper extremity muscle strength judged to be 4+/5 for the major muscle groups in the upper extremity. The patient's lower extremity muscle strength judged to be 4/5 for the major muscle groups in the lower extremity. IMPRESSION: 1. Chronic low back pain with multiple pain generators. 2. Right hip pain. 3. Osteoarthritis involving the SI joint. 4. Complex medical management using opioids. 5. History of cerebrovascular accident with pretty much returned to normal function. RECOMMENDATIONS: We discussed the treatment course. The patient feels that her current medication regimen is helpful. It allows her to engage in activities with less pain. She is able to think clearly. She is not having any significant problem with bowel or bladder function. She feels that the opioid medications are helpful. In the past when he have tried epidural steroid injections to the point that they no longer worked. She finds that this medication regimen is helpful. She will continue with MS Contin 15 mg 1 p.o. t.i.d. and Percocet 5/325, 120 tablets over one month period of time. She has been given a script for the next 3 months. She will call us if she has any concerns. We would like to thank you for letting us participate in her care. <ELECTRONICALLY SIGNED> By: Tad Harding MD 12/04/19 0840 [id number] Tad Harding MD /nt
== END ==
LOC: PAIN 06:48
DX: M54.5 Low back pain (principal); G89.29 Other chronic pain; M25.551 Pain in right hip; M47.818 Spondylosis without myelopathy or radiculopathy, sacral and sacrococcygeal region; Z88.8 Allergy status to other drugs, medicaments and biological substances; Z79.899 Other long term (current) drug therapy; Z79.891 Long term (current) use of opiate analgesic; Z91.040 Latex allergy status

== ENCOUNTER → 2020-01-08 | Outpatient (CLI) | payer OTHER ==
[~2020-01-08] VITALS: Ht 152.4 cm; Wt 82.6 kg
[2020-01-08 10:16] VITALS: BP 166/87
--- NOTE | 2020-01-08 10:40 | NUR ---
Pain Clinic Assessment: 1. History of Osteoarthritis: Left Lower Extremity Right Lower Extremity History of Rheumatoid Arthritis: Not Applicable 2. Height: 5 ft. 0 in. 152.4 cm. Weight: 182.0 lb. oz. 82.555 kg. Patient's BMI: 35.5 3. Vital Signs: BP: 166/87 Pulse: 65 Resp: 20 Temp: 02 Sat: 99 ECG Mon: 4. Pain Intensity: 7-8 5. Fall Risk: Dizziness: N Needs help standing or walking: N Fallen in the last 3 months: N Fall risk comments: SCOOTER 6. Patient on Blood Thinner: None 7. History of Hypertension: Y 8. Opioid Therapy greater than 6 weeks: Y Opiate Contract Signed: 06/07/16 9. Risk Assessment Tool Provided: 4-MODERATE 10. Functional Assessment Tool: 11. Recreational Drug Use: Never Drug Type: Tobacco Use: Never Smoker Tobacco Type: Amount or Packs/day: How Many Years: Alcohol Use: No Frequency: Quant:
--- NOTE | 2020-01-08 10:40 | NUR ---
Document as much information as known. If only year is known, type in year only. DO NOT type in UNKNOWN or NEVER!
--- NOTE | 2020-01-22 08:21 | HPC ---
[facility] [place] [address] PAIN MANAGEMENT CONSULTATION Name: MAMADOU CAPONE Room #: REG JOSE Barba#: [id number] Admission: 01/08/20 Attend Phys: Tad Harding MD Discharge: Date of : 40 Report #: [id number] THIS REPORT FOR: cc: AB FERNANDES Physician not on staff Tad Harding MD ~ CC: AB Harding Physician staff DATE OF SERVICE: 01/08/2020 CHIEF COMPLAINT: "I am having a lot of pain in my left shoulder. I cannot raise it and I am here for medication renewal." HISTORY: The patient is a 79-year-old female who has been followed in the Pain Clinic because of chronic pain. She has pain in her low back area. Rates her pain today as 7-8. It involves her low back area. She continues to ambulate in her motorized scooter. She has pain in her shoulders, knees and groin area. She does use a walker while at home. She has returned today for renewal of her medications. She is concerned about her left shoulder. Over the last 3 months, she has been quite sore. She is unable to raise it above the horizon. She would like to have an injection in the shoulder to help decrease pain and increase her mobility. ALLERGIES: VISTARIL, LISINOPRIL, HYDROXYZINE, LASIX, BACTRIM, LATEX. MEDICATIONS: Percocet 5 mg one p.o. b.i.d., morphine sulfate 15 mg t.i.d., tizanidine 50 mg at bedtime, Restasis eyedrops, Meloxicam 7.5 mg b.i.d., sertraline 100 mg, multivitamins, vitamin D, baclofen 10 mg up to 4 times daily, pravastatin 20 mg, fish oil, amlodipine 5 mg, Zanaflex 300 mg, and Nexium 40 mg. PAIN CLINIC ASSESSMENT/PQRS: 1. The patient has pain in her left lower extremity, right upper extremity, right lower extremity, left upper extremity. The patient is not being treated for rheumatoid arthritis. 2. Height 5 feet 0, weight 182 pounds, BMI is 33.5. 3. Vital signs: Blood pressure 166/87, pulse 65, respiratory rate 20, room air saturation 99%. 4. Pain intensity, 7-8/10. 5. Fall history: The patient has not fallen. Ambulates with a scooter and uses a walker when at home. 6. Blood thinner. The patient is not on a blood thinning medication. 7. Hypertension. The patient is being treated for hypertension. 8. Opioids greater than 6 weeks. The patient receives medication from [place] [address] PAIN MANAGEMENT CONSULTATION Name: MAMADOU CAPONE Trinh Room #: REG CL Asael#: [id number] Admission: 01/08/20 Attend Phys: Tad Harding MD Discharge: Date of : 40 Report #: [id number] 9. Risk assessment, moderate for opioid use. 10. Functional assessment tool, . 11. Recreational drug use: The patient denies. PHYSICAL EXAMINATION: GENERAL: The patient is a well-developed, well-nourished white female. Appears her stated age. She is alert and oriented x 3. Her affect is appropriate. She is accompanied by her sister. HEENT: Normocephalic, atraumatic. Extraocular eye muscles intact. Sclerae nonicteric. Mucous membranes are moist. NECK: Without adenopathy or JVD. The patient has pain and discomfort in the left shoulder. She is unable to raise her left shoulder greater than about 60 degrees abducted. LUNGS: Clear. ABDOMEN: Protuberant. Bowel sounds present. MUSCULOSKELETAL: Muscle strength to the left side 4-/5 for the major muscle groups on the right side, right upper extremity 5-/5 for the major muscle groups. Lower extremity, 4/5 for the major muscle groups in the lower extremities. IMPRESSION: 1. Left arm pain with findings, which appear to be consistent with frozen shoulder. 2. Chronic low back pain with multiple pain generators. 3. Right hip pain. 4. Osteoarthritis involving the SI joints. 5. Complex medical management using opioids. 6. History of cerebrovascular accident with resolution and no long-term sequelae. RECOMMENDATIONS: We discussed treatment options with the patient. The patient at this point is having pain and discomfort in her left shoulder. She is unable to raise it above horizon. She is unable to use it in activities of daily living. Muscle strength is compromised. The patient notes increased pain and discomfort with manipulation and movement of her arm. Palpation in the left area indicates some pain and discomfort, particularly in the area of the biceps tendon. Palpation in this area does cause a significant recurrence of the patient's symptoms. We will inject the trigger point area near the biceps to the biceps tendon on the left side. Risks and benefits of an injection were discussed. Possibility of infection, no improvement in pain, worsening of pain, nerve damage were discussed and the patient elects to proceed. PROCEDURE NOTE: The patient was placed in position. In the sitting position, her left deltoid area was sterilely prepped with a chlorhexidine solution and allowed to dry. A second preparation, which was allowed to dry with a chlorhexidine solution. A 25-gauge needle was then directed in the area of the [facility] [address] [place] [address] PAIN MANAGEMENT CONSULTATION Name: MAMADOU CAPONE Room #: REG [facility] Freda#: [id number] Admission: 01/08/20 Attend Phys: Tad Harding MD Discharge: Date of : 40 Report #: [id number] trigger point near the biceps tendon. The patient states this did reproduce her discomfort. Aspiration was negative. A total of 40 mg triamcinolone and 5 mL of 0.5% bupivacaine was injected. The patient tolerated the procedure well. There were no complications. She will follow up in the future as needed. The patient has been provided a script for physical therapy. She will proceed with physical therapy. If her pain remains, she will then consult an orthopedic surgeon. We would like to thank you for letting us participate in her care. We hope she continues to improve. <ELECTRONICALLY SIGNED> By: Tad Harding MD 01/22/20 0821 [id number] aTd Harding MD /nt
== END | disposition home or self-care (01) ==
LOC: PAIN 06:46
DX: M79.18 Myalgia, other site (principal); M79.602 Pain in left arm; M54.5 Low back pain; G89.29 Other chronic pain; I10 Essential (primary) hypertension; M25.551 Pain in right hip; M53.3 Sacrococcygeal disorders, not elsewhere classified; Z98.890 Other specified postprocedural states; Z79.899 Other long term (current) drug therapy; Z79.891 Long term (current) use of opiate analgesic; Z86.73 Personal history of transient ischemic attack (TIA), and cerebral infarction without residual deficits; Z88.8 Allergy status to other drugs, medicaments and biological substances; Z91.040 Latex allergy status; Z88.2 Allergy status to sulfonamides

== ENCOUNTER → 2020-03-04 | Outpatient (CLI) | payer OTHER ==
[~2020-03-04] MED LIST changes: +FAMOTIDINE 20 M20 MG PO; +VOLTAREN GEL 1100 G1 TOP
[2020-03-04 10:49] VITALS: BP 135/81
--- NOTE | 2020-03-04 10:54 | NUR ---
Pain Clinic Assessment: 1. History of Osteoarthritis: Left Lower Extremity Right Lower Extremity History of Rheumatoid Arthritis: Not Applicable 2. Height: ft. in. cm. Weight: lb. oz. kg. Patient's BMI: 3. Vital Signs: BP: 135/81 Pulse: 76 Resp: 16 Temp: 02 Sat: 93 ECG Mon: 4. Pain Intensity: 3 5. Fall Risk: Dizziness: N Needs help standing or walking: Y Fallen in the last 3 months: Y Fall risk comments: SCOOTER 6. Patient on Blood Thinner: None 7. History of Hypertension: Y 8. Opioid Therapy greater than 6 weeks: Y Opiate Contract Signed: 06/07/16 9. Risk Assessment Tool Provided: 4-MODERATE 10. Functional Assessment Tool: 11. Recreational Drug Use: Never Drug Type: Tobacco Use: Never Smoker Tobacco Type: Amount or Packs/day: How Many Years: Alcohol Use: No Frequency: Quant:
--- NOTE | 2020-03-18 14:52 | HPC ---
[facility] [address] [place] [address] PAIN MANAGEMENT CONSULTATION Name: MAMADOU CAPONE Room #: REG JOSE Vyas#: [id number] Admission: 03/04/20 Attend Phys: Tad Harding MD Discharge: Date of : 40 Report #: [id number] THIS REPORT FOR: cc: AB FERNANDES Physician not on staff Tad Hardnig MD ~ CC: AB Harding Physician staff DATE OF SERVICE: 03/04/2020 CHIEF COMPLAINT: Right leg and low back pain. HISTORY: The patient is a 79-year-old female who has been followed in the pain clinic because of lumbar radiculopathy and chronic back pain. She continues to have pain, which is debilitating. She has pain in the low back area. She is experiencing pain and discomfort in both shoulders. She has knee pain. She has characterized the pain as stabbing, sharp, burning, and cramping. She notes that walking can be problematic. She rates her pain as a 3/10 at this point. She still has pain in her shoulders and noted improvement after the trigger point injection at the previous visit. She is considering the possibility of another injection in the future. She would like to have her medications renewed. She has had no complications from the previous treatments. She feels her medication is helpful. She is able to stay as active as possible. ALLERGIES: VISTARIL, LISINOPRIL, HYDROXYZINE, LASIX, BACTRIM, LATEX. MEDICATIONS: Percocet 5 mg one p.o. b.i.d., morphine sulfate 15 mg t.i.d., tizanidine 5 mg at bedtime, Restasis eyedrops, Meloxicam 7.5 mg b.i.d., sertraline 100 mg, multivitamins, vitamin D, baclofen 10 mg 4 times daily, pravastatin 20 mg, fish oil, amlodipine 5 mg, Zanaflex 300 mg, and Nexium 40 mg. PAIN CLINIC ASSESSMENT AND PQRS: 1. The patient has pain in her lower back as well as in her right upper extremity. She has pain in the right lower extremity. The patient is not being treated for rheumatoid arthritis. 2. Height 5 feet 0, weight 182 pounds, BMI is 33.5. 3. Vital Signs: Blood pressure 135/80, pulse 76, respiratory rate 16, room air saturation 93%. 4. Pain intensity 3/10. 5. Fall history: The patient has not fallen in the last 3 months. She is using a motor scooter. 6. Blood thinner. The patient is not on a blood thinning medication. 7. Hypertension. The patient is being treated for hypertension. 8. Opioids greater than 6 weeks. The patient receives medication from the [address] [address] PAIN MANAGEMENT CONSULTATION Name: LIDYA CAPONEJAVI Tsang Room #: REG [facility]#: [id number] Admission: 03/04/20 Attend Phys: aTd Harding MD Discharge: Date of : 40 Report #: [id number] clinic. 9. Risk assessment tool, moderate for opioid use. 10. Functional assessment tool . 11. Recreational drug use. The patient denies. 12. Tobacco: The patient has never smoked. 13. Alcohol. The patient denies frequent use of alcoholic beverages. PHYSICAL EXAMINATION: GENERAL: The patient is a well-developed, well-nourished white female. Appears her stated age. She is alert and oriented x 3. She is accompanied by her son. HEENT: Normocephalic, atraumatic. Extraocular eye muscles intact. Sclerae nonicteric. Mucous membranes are moist. NECK: Without adenopathy or JVD. The patient has discomfort in the left shoulder area. She has difficulty lifting her shoulder above the horizon. She abducts to about 60 degrees. LUNGS: Clear. ABDOMEN: Protuberant. Bowel sounds present. MUSCULOSKELETAL: Strength on the left side 4-/5 for the major muscle groups in the right upper extremity muscle strength 5-/5. Lower extremity muscle strength 4/5 for the major muscle groups in the lower extremity. IMPRESSION: 1. Continued left shoulder pain with findings consistent with frozen shoulder. 2. Chronic low back pain with multiple pain generators. 3. Right hip pain. 4. Osteoarthritis involving the SI joint. 5. Complex medical management using opioids. 6. History of cerebrovascular accident with resolution and no long-term sequela. RECOMMENDATIONS: We discussed treatment plan with the patient. In the future, we may consider another injection in her left arm. We will continue with her medications. She finds these medications continue to be helpful. She does not have any complications. She is able to think clearly. They indeed improve her quality of life. She will call us if she has any concerns. She keeps her medications in a guarded area. We would like to thank you for letting us participate in her care. We hope she continues to improve. <ELECTRONICALLY SIGNED> By: Tad Harding MD 03/18/20 1452 [id number] 1150 Tad Harding MD /nt
== END ==
LOC: PAIN 06:45
DX: M54.5 Low back pain (principal); M79.604 Pain in right leg; G89.29 Other chronic pain; I10 Essential (primary) hypertension; Z86.73 Personal history of transient ischemic attack (TIA), and cerebral infarction without residual deficits; Z79.899 Other long term (current) drug therapy; Z79.891 Long term (current) use of opiate analgesic; Z88.1 Allergy status to other antibiotic agents; Z91.040 Latex allergy status; Z91.09 Other allergy status, other than to drugs and biological substances

== ENCOUNTER → 2020-05-04 | Outpatient (CLI) | payer OTHER ==
[~2020-05-04] VITALS: Ht 152.4 cm; Wt 89.4 kg
[~2020-05-04] MED LIST changes: -AMLODIPINE BESY10 MG PO; +NORVASC5 MG PO; +SERTRALINE HCL50 MG PO; -ZOLOFT100 MG PO
[2020-05-04 09:15] VITALS: BP 146/69
--- NOTE | 2020-05-04 09:31 | NUR ---
Pain Clinic Assessment: 1. History of Osteoarthritis: Left Lower Extremity Right Lower Extremity History of Rheumatoid Arthritis: Not Applicable 2. Height: 5 ft. 0 in. 152.4 cm. Weight: 197.0 lb. oz. 89.359 kg. Patient's BMI: 38.5 3. Vital Signs: BP: 146/69 Pulse: 58 Resp: 16 Temp: 02 Sat: 97 ECG Mon: 4. Pain Intensity: 7 5. Fall Risk: Dizziness: N Needs help standing or walking: Y Fallen in the last 3 months: Y Fall risk comments: SCOOTER 6. Patient on Blood Thinner: None 7. History of Hypertension: Y 8. Opioid Therapy greater than 6 weeks: Y Opiate Contract Signed: 06/07/16 9. Risk Assessment Tool Provided: 4-MODERATE 10. Functional Assessment Tool: 11. Recreational Drug Use: Never Drug Type: Tobacco Use: Never Smoker Tobacco Type: Amount or Packs/day: How Many Years: Alcohol Use: No Frequency: Quant:
--- NOTE | 2020-05-04 12:18 | HPC ---
[facility] [address] [place] [address] PAIN MANAGEMENT CONSULTATION Name: MAMADOU CAPONE Room #: REG [facility]#: [id number] Admission: 05/04/20 Attend Phys: Viky Adhikari Discharge: Date of : 40 Report #: [id number] THIS REPORT FOR: cc: AB FERNANDES Physician not on staff Viky Adhikari ~ CC: Oscar Harding MD DATE OF SERVICE: 05/04/2020 CHIEF COMPLAINT: Right leg and low back pain. HISTORY OF PRESENT ILLNESS: This is a 79-year-old female who is well known to the pain clinic is following up today for her lumbar radiculopathy. She continues to have pain located in her back that radiates down both legs and pain in her bilateral shoulders. She reports it as a 7/10 today, which is an average pain score for her, sharp, stabbing, burning, cramping feeling, worse with walking and activity. She is in her electric wheelchair today. She feels that the medication as well as lying down and resting are beneficial. She states that sometimes she does have constipation issues and uses Dulcolax tablets and takes Colace on a daily basis. She reports that the previous shoulder injection that Dr. Harding performed in December was beneficial, though very short-lived. Today, she is here to request medication refills. ALLERGIES: VISTARIL, LISINOPRIL, HYDROXYZINE, LASIX, BACTRIM, AND LATEX. CURRENT LIST OF MEDICATIONS: Diclofenac gel p.r.n., oxycodone 5/325 four tablets a day, morphine sulfate 15 mg t.i.d., trazodone, Restasis, meloxicam, Dulcolax, Zoloft, multivitamin, vitamin D, baclofen, pravastatin, fish oil, amlodipine, and Nexium. PQRS: 1. She has osteoarthritic changes in her lower extremities as well as her back. She denies being treated for rheumatoid arthritis. 2. Height is 5 feet, weight is 197, BMI is 38. 3. Vital signs 146/69, pulse is 58, respirations 16, oxygen sat is 97%. 4. Pain score is 7/10. 5. Denies dizziness. Does need help walking. She has electric scooter and has fallen in the last 3 months, but was not injured. 6. The patient is not on any blood thinners, but does take medicine for hypertension. Her opioid therapy is greater than 6 weeks; therefore, an opioid signed contract is on the chart. Risk assessment is low. Functional assessment is 32/70. 7. Recreational drug use, she denies. She is not a smoker and does not drink alcohol. [address] [address] PAIN MANAGEMENT CONSULTATION Name: LIBORIOMAMADOU Room #: REG CLI Asael#: [id number] Admission: 05/04/20 Attend Phys: Viky Adhikari Discharge: Date of : 40 Report #: [id number] According to the prescription monitoring system, today she is due for her oxycodone. Her morphine is due to be filled next week. According to the CDC guidelines, her morphine mEq is 75 MMEs per day. There is a recent drug screen on the chart that is appropriate as well. PHYSICAL EXAMINATION: GENERAL: This is a well-developed, well-nourished, slightly obese 79-year-old female who appears her stated age. She is alert and orientated, placing her pain score at 7/10. HEENT: Normocephalic, atraumatic. Extraocular eye muscles are intact. She is wearing a mask. NECK: Without adenopathy or JVD. MUSCULOSKELETAL: She has discomfort in her bilateral shoulders, worse with lifting above her head, pain is increased. She is able to abduct to 60 degrees. She has tenderness in her lumbosacral region that does radiate down her bilateral legs. Lower extremity strength judged to be 4/5. IMPRESSION: 1. 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 2. Chronic low back pain with multiple pain generators. 3. Right hip pain. 4. Osteoarthritis involving multiple joints. 5. History of cerebrovascular accident with no long-term sequela. 6. Complex medical management utilizing opioid medications. PLAN: 1. We discussed treatment options with the patient today. The patient finds her medication helpful enabling her to carry out activities of daily living that she is able to perform. She does use a scooter to help her get around the house as well, though she does walk short distances. She finds that the medication enables her to be as active as she is able. So we will therefore refill her oxycodone 5/325, #120 for today and 4 weeks supply as well as her morphine sulfate 15 mg, #90, for today and 4 weeks supply. These will be sent electronically by Dr. Martin Harding. 2. The patient is not in need of her Voltaren gel today. She finds that she does use this sparingly, but does take another anti-inflammatory on a daily basis without any GI symptoms. 3. The patient will return in 2 months as needed for medications and will call as needed if she feels like an injection is warranted. 4. The patient is seen in collaboration with Dr. Harding. <ELECTRONICALLY SIGNED> By: Viky Adhikari 05/04/20 1218 [id number] Viky Adhikari /nt
== END ==
LOC: PAIN 06:45
PROVIDERS: ATTEND Clinical Nurse Specialist Adult Health
DX: M54.16 Radiculopathy, lumbar region (principal); M25.511 Pain in right shoulder; M25.551 Pain in right hip; M19.90 Unspecified osteoarthritis, unspecified site; Z79.891 Long term (current) use of opiate analgesic

== ENCOUNTER → 2020-07-06 | Outpatient (CLI) | payer OTHER ==
[~2020-07-06] VITALS: Ht 154.9 cm; Wt 87.1 kg
[~2020-07-06] MED LIST changes: +NARCAN4 MG NARES
[2020-07-06 10:22] VITALS: BP 158/83
--- NOTE | 2020-07-06 10:27 | NUR ---
Pain Clinic Assessment: 1. History of Osteoarthritis: Left Lower Extremity Right Lower Extremity History of Rheumatoid Arthritis: Not Applicable 2. Height: 5 ft. 1 in. 154.9 cm. Weight: 192.0 lb. oz. 87.091 kg. Patient's BMI: 36.3 3. Vital Signs: BP: 158/83 Pulse: 62 Resp: 18 Temp: 02 Sat: 97 ECG Mon: 4. Pain Intensity: 10 5. Fall Risk: Dizziness: N Needs help standing or walking: N Fallen in the last 3 months: Y Fall risk comments: FELL 2 MONTHS AGO 6. Patient on Blood Thinner: None 7. History of Hypertension: Y 8. Opioid Therapy greater than 6 weeks: Y Opiate Contract Signed: 06/07/16 9. Risk Assessment Tool Provided: 4-MODERATE 10. Functional Assessment Tool: 11. Recreational Drug Use: Never Drug Type: Tobacco Use: Never Smoker Tobacco Type: Amount or Packs/day: How Many Years: Alcohol Use: No Frequency: Quant:
--- NOTE | 2020-07-06 15:22 | HPC ---
[facility] [place] [address] PAIN MANAGEMENT CONSULTATION Name: MAMADOU CAPONE Room #: REG [facility]#: [id number] Admission: 07/06/20 Attend Phys: Viky Adhikari Discharge: Date of : 40 Report #: [id number] THIS REPORT FOR: cc: AB FERNANDES Physician not on staff Viky Adhikari ~ CC: Oscar Harding MD DATE OF SERVICE: 07/06/2020 CHIEF COMPLAINT: Left shoulder pain, low back pain, lumbar radiculopathy. HISTORY OF PRESENT ILLNESS: This is a well-known patient to the pain clinic that is a 79-year-old female. Today, she is reporting her pain score at a 10/10. She states she has been out of her medications since yesterday. She failed to make a timely appointment and has been out of her oxycodone. Today, she states that when she takes her medications on a regular basis, her pain is usually at 4-5 in her lower back that does radiate into her right groin down her legs. She also reports left shoulder pain. She has fallen again recently and injured her shoulder. Again, she did not seek medical attention and today complains that it is very problematic. The patient is in a motorized wheelchair that she uses to get around and she states that walking and activity do increase her pain as well as weather changes. She denies any problems with daytime somnolence or constipation as a result of her opioid medications. ALLERGIES: VISTARIL, LISINOPRIL, HYDROXYZINE, LASIX, BACTRIM, LATEX. CURRENT MEDICATIONS: Naloxone p.r.n. emergency, oxycodone 5/325 two tablets b.i.d., morphine sulfate 15 mg t.i.d., Voltaren gel, trazodone, meloxicam, nystatin, Zoloft, multivitamin, vitamin D, baclofen, pravastatin, fish oil, amlodipine, and Nexium. PQRS: 1. She has osteoarthritic changes in her bilateral upper and lower extremities. Denies any rheumatoid arthritis. 2. Height is 5 feet 1 inch, weight is 192, BMI is 36. 3. Vital signs, 158/83, pulse is 62, respirations 18, oxygen sat is 97%. 4. Pain score is 10/10, at times 4/5 with medications. 5. Denies dizziness. Does need assistance with walking. She uses electric wheelchair and has fallen in the last 3 months, did not seek medical attention. 6. The patient is not on any blood thinners, but does take medicine for hypertension. Her opioid therapy is greater than 6 weeks; therefore, an opioid signed contract is on the chart. Her risk assessment is low. Functional assessment is 32/70. 7. Recreational drug use, she denies. She is not a smoker and does not drink alcohol. [address] [address] PAIN MANAGEMENT CONSULTATION Name: LIBORIOMAMADOU Room #: REG [facility]#: [id number] Admission: 07/06/20 Attend Phys: Viky Adhikari Discharge: Date of : 40 Report #: [id number] According to the prescription monitoring system, the patient is filling appropriately. She is due to fill her medications today. Her morphine mEq according to the CDC guidelines is 75 MME per day. There is a drug screen in the chart. We will recheck that at her next visit. PHYSICAL EXAMINATION: GENERAL: This is a well-developed, well-nourished, slightly obese 79-year-old female who appears her stated age, placing her current pain score at 10/10 today. Her affect is appropriate. HEENT: Normocephalic, atraumatic. Extraocular eye muscles are intact. Sclerae are non-intrinsic. She is wearing a mask and glasses. NECK: Without adenopathy or JVD. ABDOMEN: Protuberant. Bowel sounds present. MUSCULOSKELETAL: She has pain and discomfort in her left shoulder. She is unable to raise her left shoulder greater than 60 degrees abducted. She has tenderness in the lumbosacral region that radiates into her legs bilaterally. Her upper and lower extremity strength is diminished at 4/5. IMPRESSION: 1. 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 2. Chronic low back pain with multiple pain generators. 3. Osteoarthritis involving multiple joints. 4. History of cerebrovascular incident with resolution and no long-term sequela. 5. Complex medical management utilizing opioid medications. We reviewed the fact that opiate medications are being used to provide analgesia adequate to support activities of daily living, not attempting to achieve a specific pain score on the 0-10 Visual Analog Scale. The current opiate medications are providing sufficient analgesia to allow the patient to participate in activities of daily living. The patient is not exhibiting any aberrant behavior suggestive of drug diversion. The patient is not having any adverse reactions to medications. The patient is not suffering from daytime somnolence or mental acuity changes. The patient is managing opiate-induced constipation with appropriate lszv-khp-qjqzquz agents and dietary considerations. The patient was counseled on concern for caution with operating a motor vehicle while using opiate medications. A physical exam was performed and the patient's functional status was evaluated. All patients with back pain were advised against the bed rest greater than 4 days and were advised to return to normal activities. Pain score assessment was noted and the treatment plan was reviewed with the patient. All current medications, both prescribed and OTC were reviewed and reconciled on the electronic medical record. Tobacco screening was accomplished and smoking cessation was advised when indicated. BMI was noted and diet/exercise [facility] [address] [place] [address] PAIN MANAGEMENT CONSULTATION Name: LIBORIOMAMADOU Room #: REG [facility] Asael#: [id number] Admission: 07/06/20 Attend Phys: Viky Adhikari Discharge: Date of : 40 Report #: [id number] modification was recommended for all patients following outside normal parameters. I reviewed with the patient today their responsibilities to safeguard prescription medications, reviewed their responsibility to utilize medications only as prescribed by the physician. They are to seek and receive pain medications only from 1 physician group ( [facility]). They are to use 1 pharmacy and keep the clinic informed if they change pharmacies. Their responsibilities include making followup visits in a timely fashion and to avoid abrupt discontinuation of medication usage. Their responsibilities further include bringing their medications (bottles from the pharmacy with residual pills) to the visit for possible confirmation of pill counts and the patient understands it is their responsibility to submit to random drug screens to ensure both that the medications prescribed are present, and that no other controlled substances are present. All prescriptions provided today were generated electronically. PLAN: 1. We discussed treatment options with the patient today. Based on the patient's continued discomfort in her left shoulder, I believe that she should trial another injection from Dr. Martin Harding. Her last injection, which she was beneficial, was in December. The patient did recently have a flu shot and is unsure of the date. She will check when she is at home and schedule an appointment at least 2 weeks after her flu vaccination. 2. We will continue this patient on her oxycodone 5/325 up to 4 tablets a day and her morphine sulfate 15 mg 3 times a day. These will be sent electronically for today and 4 weeks supply to her pharmacy by Dr. Martin Harding. 3. The patient is seen today in collaboration with Dr. Martin Harding who collaborated care. <ELECTRONICALLY SIGNED> By: Viky Adhikari 07/06/20 1522 [id number] Viky Adhikari /nt
== END ==
LOC: PAIN 06:56
PROVIDERS: ATTEND Clinical Nurse Specialist Adult Health
DX: M54.16 Radiculopathy, lumbar region (principal); M25.512 Pain in left shoulder; G89.29 Other chronic pain; M19.90 Unspecified osteoarthritis, unspecified site; F11.20 Opioid dependence, uncomplicated; Z88.8 Allergy status to other drugs, medicaments and biological substances; Z79.899 Other long term (current) drug therapy; Z86.73 Personal history of transient ischemic attack (TIA), and cerebral infarction without residual deficits

== ENCOUNTER → 2020-08-31 | Outpatient (CLI) | payer OTHER ==
[~2020-08-31] VITALS: Ht 154.9 cm; Wt 82.6 kg
[2020-08-31 10:48] VITALS: BP 154/76
--- NOTE | 2020-08-31 11:03 | NUR ---
Pain Clinic Assessment: 1. History of Osteoarthritis: BILATERAL LEGS History of Rheumatoid Arthritis: Not Applicable 2. Height: 5 ft. 1 in. 154.9 cm. Weight: 182.0 lb. oz. 82.555 kg. Patient's BMI: 34.4 3. Vital Signs: BP: 154/76 Pulse: 65 Resp: 16 Temp: 02 Sat: 96 ECG Mon: 4. Pain Intensity: 7 5. Fall Risk: Dizziness: N Needs help standing or walking: Y Fallen in the last 3 months: N Fall risk comments: FELL 2 MONTHS AGO 6. Patient on Blood Thinner: None 7. History of Hypertension: Y 8. Opioid Therapy greater than 6 weeks: Y Opiate Contract Signed: 06/07/16 9. Risk Assessment Tool Provided: 4-MODERATE 10. Functional Assessment Tool: 11. Recreational Drug Use: Never Drug Type: Tobacco Use: Never Smoker Tobacco Type: Amount or Packs/day: How Many Years: Alcohol Use: No Frequency: Quant:
--- NOTE | 2020-09-01 10:07 | HPC ---
[facility] [address] [place] [address] PAIN MANAGEMENT CONSULTATION Name: MAMADOU CAPONE Room #: REG [facility] Asael#: [id number] Admission: 08/31/20 Attend Phys: Viky Adhikari Discharge: Date of : 40 Report #: [id number] CC: AB Harding MD DATE OF SERVICE: 08/31/2020 CHIEF COMPLAINT: Low back pain, lumbar radiculopathy. HISTORY OF PRESENT ILLNESS: This is a pleasant 79-year-old female who is well known to the pain clinic and return today for refill of her opioid medications. Today, she is rating her pain score as 7/10. Overall, she feels like she has been doing quite well, the last few months, complaining of pain that radiates from her low back into her right groin and down her legs as well as ongoing shoulder pain. She feels the weather changes do increase her shoulder pain more significantly, but overall she feels her medication as well as repositioning herself and lying down are beneficial. She is in an electric wheelchair today, which she reports using at most times when she is out of her house. She does report taking her last breakthrough pain medicine 2 days ago, but has been continuing her morphine 3 times a day. The patient reports that [facility] who is a home-based medical personnel comes to her house twice a year and they have recommended that she switch to OxyContin for her opioid medications. The patient is reporting this to us, but states she would like to continue on her current medication that has been working very well for her. ALLERGIES: VISTARIL, LISINOPRIL, ATARAX, LASIX, BACTRIM, LATEX. CURRENT LIST OF MEDICATIONS: Oxycodone 5/325 p.r.n., morphine sulfate 15 mg t.i.d., Voltaren gel, trazodone, Restasis, Mobic, Zoloft, multivitamin, vitamin D, baclofen, pravastatin, fish oil, Norvasc, and omeprazole. PQRS: 1. She has osteoarthritic changes in her shoulders and back. Denies any rheumatoid arthritis. 2. Height is 5 feet 1 inch, weight is 182, BMI is 34. 3. Vital signs; blood pressure 154/76, pulse is 65, respirations 16, oxygen sat is 96%. 4. Pain score is 7/10. 5. Denies dizziness. The patient needs assistance with walking and uses a cane or a wheelchair. She has not fallen in the last 3 months. 6. She is not on any blood thinners, but does take medicine for hypertension. 7. Opioid therapy is greater than 6 weeks; therefore, an opioid signed contract is on the chart. Risk assessment is moderate. Functional assessment is 32/70. 8. Recreational drug use, she denies. She is not a smoker and does not drink alcohol. According to the prescription monitoring system, the patient is filling appropriately. Her morphine milliequivalent is 75 MMEs. We will check a random drug screen on her at her next visit. PHYSICAL EXAMINATION: GENERAL: This is slightly obese, well-developed, well-nourished 79-year-old female who appears her stated age, placing her current pain score at 7/10 today. HEENT: Normocephalic, atraumatic. Extraocular eye muscles are intact. She is wearing a mask and glasses. NECK: Without adenopathy or JVD. ABDOMEN: Protuberant. Bowel sounds are present. MUSCULOSKELETAL: The patient has pain in her lower back that radiates down her right leg into her hips bilaterally. Her upper and lower extremities strength are diminished at 4/5. She has pain in her left shoulder that is greater than 60 degrees. IMPRESSION: 1. 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 2. Chronic low back pain with multiple pain generators. 3. Osteoarthritis of multiple joints. 4. History of cerebrovascular accident with resolution. 5. Complex medical management utilizing opioid medications. We reviewed the fact that opiate medications are being used to provide analgesia adequate to support activities of daily living, not attempting to achieve a specific pain score on the 0-10 Visual Analog Scale. The current opiate medications are providing sufficient analgesia to allow the patient to participate in activities of daily living. The patient is not exhibiting any aberrant behavior suggestive of drug diversion. The patient is not having any adverse reactions to medications. The patient is not suffering from daytime somnolence or mental acuity changes. The patient is managing opiate-induced constipation with appropriate hoyg-zgk-uotgroc agents and dietary considerations. The patient was counseled on concern for caution with operating a motor vehicle while using opiate medications. PLAN: 1. We discussed treatment options with the patient today. The patient finds her medications very beneficial, though she is out of her short-acting medications today. We did discuss calling in a timely fashion for a refill of her medications to prevent running out of her medications. The patient does get 2 months of medications, encouraging her to call when she fills her second prescription. 2. We will have Dr. Harding send her morphine 15 mg, #90 and oxycodone 5/325, #120 to the pharmacy for today and 4-week supply. 3. We did discuss that Voltaren gel is [id number]. She may fill this generically or she may call if she needs an additional refill. 4. We will collect a random drug screen on the patient at her next visit. 5. We did discuss that [facility] encouraged her to change to OxyContin. We explained that, that medication is not very many formulary and we would decrease her dose based on the morphine milliequivalent conversions. The patient is not interested in rotating her medications since she feels like she is doing quite well on her current dose. 6. The patient is seen in collaboration with Dr. Harding. The patient will return in 2 months. <ELECTRONICALLY SIGNED> By: Viky Adhikari 09/01/20 1007 [id number] Viky Adhikari /nt
== END ==
LOC: PAIN 06:48
PROVIDERS: ATTEND Clinical Nurse Specialist Adult Health
DX: M54.16 Radiculopathy, lumbar region (principal); G89.4 Chronic pain syndrome; M25.512 Pain in left shoulder; M19.90 Unspecified osteoarthritis, unspecified site; F11.20 Opioid dependence, uncomplicated; Z86.73 Personal history of transient ischemic attack (TIA), and cerebral infarction without residual deficits; Z88.8 Allergy status to other drugs, medicaments and biological substances; Z79.899 Other long term (current) drug therapy

== ENCOUNTER → 2020-10-26 | Outpatient (CLI) | payer OTHER ==
[~2020-10-26] VITALS: Ht 154.9 cm; Wt 87.1 kg
--- NOTE | ~2020-10-26 | HPC ---
[facility] [address] [place] [address] PAIN MANAGEMENT CONSULTATION Name: MAMADOU CAPONE Room #: REG [facility]#: [id number] Admission: 10/26/20 Attend Phys: Viky Adhikari Discharge: Date of : 40 Report #: [id number] THIS REPORT FOR: cc: AB FERNANDES Physician not on staff Viky Adhikari ~ DATE OF SERVICE: 10/26/2020 CHIEF COMPLAINT: Low back pain, lumbar radiculopathy. HISTORY OF PRESENT ILLNESS: This is a 79-year-old female who returns to the pain clinic today for refill of her opioid medications. Today, she is doing quite well per her report, mornings are normally better for her and her pain increases later in the day. Her pain is most problematic in her low back and shoulders and any activity does worsen her pain as well as weather changes. She reports using a Lidoderm patch and Voltaren gel on her shoulders and does find that beneficial as well as taking her morphine and Percocet. She does suffer from some constipation and takes Benefiber or Dulcolax as needed. She denies any daytime somnolence as a result of her medications though she does lie down in the afternoon to rest her back per her report. ALLERGIES: VISTARIL, LISINOPRIL, HYDROXYZINE, LASIX, BACTRIM AND LATEX. CURRENT MEDICATIONS: Percocet 5/325 q.i.d., morphine 15 mg t.i.d., naloxone p.r.n., Voltaren gel, trazodone, Restasis, meloxicam, nystatin, Dulcolax, Zoloft, multivitamin, vitamin D, baclofen, pravastatin, fish oil, amlodipine and Nexium. PQRS: 1. She has arthritic changes in her legs and spine and shoulders bilaterally. She denies any rheumatoid arthritis. 2. Height is 5 feet 1 inch, weight is 192, BMI is 36. 3. Vital signs 193/86, pulse is 70, respirations 20, oxygen sat is 100. 4. Pain score is 6/10. 5. Denies dizziness, though uses an electric scooter and/or a walker. Has not fallen in the last 3 months. 6. The patient is not on any blood thinners, but does take medicine for hypertension. Opioid therapy is greater than 6 weeks; therefore an opioid signed contract is on the chart. Risk assessment is moderate. Functional assessment is 32/70. 7. Recreational drug use, she denies. She is not a smoker and does not drink alcohol. According to the prescription monitoring system, she is due to fill her morphine next week and is able to fill her oxycodone today, she is filling appropriately for her medications. Her morphine mEq is 75 MME. She is seen in the clinic [address] [address] PAIN MANAGEMENT CONSULTATION Name: MAMADOU CAPONE Trinh Room #: REG [facility] Asael#: [id number] Admission: 10/26/20 Attend Phys: Viky Adhikari Discharge: Date of : 40 Report #: [id number] every 2 months and we will obtain a random drug screen today on her. PHYSICAL EXAMINATION: GENERAL: This is alert and orientated, morbidly obese, 79-year-old female, who appears her stated age, placing her current pain score at 6/10. She is a good historian. HEENT: Normocephalic, atraumatic. Extraocular eye muscles are intact. She is wearing glasses. NECK: Without adenopathy or JVD. ABDOMEN: Protuberant with bowel sounds present. MUSCULOSKELETAL: Tenderness in her bilateral shoulders that pain has increased with all range of motion activities, worse on the left than the right. Tenderness in the lumbosacral region of her back that radiates down her legs bilaterally. Her lower extremity strength is diminished. She is in a wheelchair. IMPRESSION: 1. Bilateral shoulder pain greater on the left consistent with frozen shoulder. 2. Chronic low back pain, multiple pain generators. 3. Osteoarthritis in multiple joints. 4. History of cerebrovascular accident with resolution. 5. Complex medical management utilizing opioid medications. We reviewed the fact that opiate medications are being used to provide analgesia adequate to support activities of daily living, not attempting to achieve a specific pain score on the 0-10 Visual Analog Scale. The current opiate medications are providing sufficient analgesia to allow the patient to participate in activities of daily living. The patient is not exhibiting any aberrant behavior suggestive of drug diversion. The patient is not having any adverse reactions to medications. The patient is not suffering from daytime somnolence or mental acuity changes. The patient is managing opiate-induced constipation with appropriate gihy-nsy-zptifcv agents and dietary considerations. The patient was counseled on concern for caution with operating a motor vehicle while using opiate medications. A physical exam was performed and the patient's functional status was evaluated. All patients with back pain were advised against the bed rest greater than 4 days and were advised to return to normal activities. Pain score assessment was noted and the treatment plan was reviewed with the patient. All current medications, both prescribed and OTC were reviewed and reconciled on the electronic medical record. Tobacco screening was accomplished and smoking cessation was advised when indicated. BMI was noted and diet/exercise modification was recommended for all patients following outside normal parameters. I reviewed with the patient today their responsibilities to safeguard [facility] [address] [place] [address] PAIN MANAGEMENT CONSULTATION Name: LIBORIOMAMADOU Trinh Room #: REG [facility]#: [id number] Admission: 10/26/20 Attend Phys: Viky Adhikari Discharge: Date of : 40 Report #: [id number] prescription medications, reviewed their responsibility to utilize medications only as prescribed by the physician. They are to seek and receive pain medications only from 1 physician group ( [facility]). They are to use 1 pharmacy and keep the clinic informed if they change pharmacies. Their responsibilities include making followup visits in a timely fashion and to avoid abrupt discontinuation of medication usage. Their responsibilities further include bringing their medications (bottles from the pharmacy with residual pills) to the visit for possible confirmation of pill counts and the patient understands it is their responsibility to submit to random drug screens to ensure both that the medications prescribed are present, and that no other controlled substances are present. All prescriptions provided today were generated electronically. PLAN: 1. We discussed treatment options with the patient today. The patient is due to fill her medications next week. She finds these beneficial and has been trying to decrease her oxycodone use. We will continue at 120 tablets per month for the next few months and hopefully decrease this in the future to 90 tablets. Scripts will be sent electronically by Dr. Harding, who did see the patient today for her morphine sulfate 15 mg, #90, to fill on and and oxycodone 5/325, #120. 2. We will collect a random drug on her today and check the validity on this specimen. 3. The patient did see Dr. Harding, who collaborated care today. By: [id number] Viky Adhikari /bea
[2020-10-26 08:35] VITALS: BP 193/85
--- NOTE | 2020-10-26 09:03 | NUR ---
Pain Clinic Assessment: 1. History of Osteoarthritis: BILATERAL LEGS History of Rheumatoid Arthritis: Not Applicable 2. Height: 5 ft. 1 in. 154.9 cm. Weight: 192.0 lb. oz. 87.091 kg. Patient's BMI: 36.3 3. Vital Signs: BP: 193/85 Pulse: 70 Resp: 20 Temp: 02 Sat: 100 ECG Mon: 4. Pain Intensity: 6 5. Fall Risk: Dizziness: N Needs help standing or walking: Y Fallen in the last 3 months: N Fall risk comments: FELL 2 MONTHS AGO 6. Patient on Blood Thinner: None 7. History of Hypertension: Y 8. Opioid Therapy greater than 6 weeks: Y Opiate Contract Signed: 06/07/16 9. Risk Assessment Tool Provided: 4-MODERATE 10. Functional Assessment Tool: 11. Recreational Drug Use: Never Drug Type: Tobacco Use: Never Smoker Tobacco Type: Amount or Packs/day: How Many Years: Alcohol Use: No Frequency: Quant:
== END ==
LOC: PAIN 06:41
PROVIDERS: ATTEND Clinical Nurse Specialist Adult Health
DX: M25.511 Pain in right shoulder (principal); M25.512 Pain in left shoulder; G89.29 Other chronic pain; M19.90 Unspecified osteoarthritis, unspecified site; Z79.891 Long term (current) use of opiate analgesic

== ENCOUNTER → 2020-12-21 | Outpatient (CLI) | payer OTHER ==
[~2020-12-21] VITALS: Ht 154.9 cm; Wt 89.4 kg
[2020-12-21 09:58] VITALS: BP 156/79
--- NOTE | 2020-12-21 10:17 | NUR ---
Pain Clinic Assessment: 1. History of Osteoarthritis: BILATERAL LEGS History of Rheumatoid Arthritis: Not Applicable 2. Height: 5 ft. 1 in. 154.9 cm. Weight: 197.0 lb. oz. 89.359 kg. Patient's BMI: 37.2 3. Vital Signs: BP: 156/79 Pulse: 66 Resp: 16 Temp: 02 Sat: 98 ECG Mon: 4. Pain Intensity: 7-8 5. Fall Risk: Dizziness: N Needs help standing or walking: Y Fallen in the last 3 months: N Fall risk comments: FELL 2 MONTHS AGO 6. Patient on Blood Thinner: None 7. History of Hypertension: Y 8. Opioid Therapy greater than 6 weeks: Y Opiate Contract Signed: 06/07/16 9. Risk Assessment Tool Provided: 4-MODERATE 10. Functional Assessment Tool: 11. Recreational Drug Use: Never Drug Type: Tobacco Use: Never Smoker Tobacco Type: Amount or Packs/day: How Many Years: Alcohol Use: No Frequency: Quant:
--- NOTE | 2020-12-21 13:47 | HPC ---
[facility] [address] [place] [address] PAIN MANAGEMENT CONSULTATION Name: MAMADOU CAPONE [facility] #: [facility]ITAL[facility]win[facility]win[facility] [id number] Admission: 12/21/20 Attend Phys: Viky Adhikari Discharge: Date of : 40 Report #: [id number] THIS REPORT FOR: cc: AB FERNANDES Physician not on staff Viky Adhikari ~ DATE OF SERVICE: 12/21/2020 CHIEF COMPLAINT: Low back pain, lumbar radiculopathy. HISTORY OF PRESENT ILLNESS: This is an 80-year-old female who returns to the pain clinic today for refill of her medications. Today, she is reporting that she is doing quite well on her current regimen, rating her pain score at 7-8. She reports her pain is in her low back that radiates into her right groin and down her legs to her knees as well as having arthritic issues in her shoulders. She does show me a diary that she has kept of her opioid medications when she takes them as well as her baclofen. She reports that does help her taking her medications appropriately. She does report the weather changes last few weeks did increase her pain as well as activity, but overall she reports she is in a good regimen. Denies constipation issues as long as she takes Dulcolax daily and denies any somnolence. The patient reports she is scheduled for her second COVID vaccine next week. She has received the Moderna through [facility] and has had no side effects from the vaccine and is looking forward to having her second one. ALLERGIES: VISTARIL, LISINOPRIL, HYDRALAZINE, LASIX, BACTRIM, AND LATEX. CURRENT MEDICATIONS: Percocet 5/325, morphine 15 mg t.i.d., Voltaren gel, trazodone, Restasis, meloxicam, Dulcolax, Zoloft, multivitamin, vitamin D, baclofen, pravastatin, fish oil, amlodipine, and Nexium. PQRS: 1. She has arthritic changes in her shoulders, knees and back. Denies any rheumatoid arthritis. 2. Height is 5 feet 1 inch, weight is 197, BMI is 37. Vital signs 156/79, pulse is 66, respirations 16, oxygen sat is 98. 3. Pain score is 7 to 8. Fall risk. Denies dizziness. Does need assistance with ambulation. She uses a walker or an electronic wheelchair, which she is in today. She has not fallen in the last 3 months. 4. The patient is not on any blood thinners, but does take medicine for hypertension. Her opioid therapy is greater than 6 weeks; therefore, an opioid signed contract is on the chart. Risk assessment is moderate. Functional assessment is 32/70. 5. Recreational drug use, she denies. She is not a smoker and does not drink alcohol. [address] [address] PAIN MANAGEMENT CONSULTATION Name: LIBORIOMAMADOU Room #: REG JOSE Vyas#: [id number] Admission: 12/21/20 Attend Phys: Viky Adhikari Discharge: Date of : 40 Report #: [id number] According to the prescription monitoring system, the patient is filling appropriately. She is due to fill her oxycodone today and her morphine next week. Her morphine mEq is 75 MME. There is a drug screen on the chart that is appropriate for her medications that was collected at her last visit. PHYSICAL EXAMINATION: GENERAL: This is alert and orientated 80-year-old female who is morbidly obese. She is well hydrated and well nourished, rating her pain score at 7-8/10 today. HEENT: Normocephalic, atraumatic. Extraocular eye muscles are intact. She is wearing a mask and glasses. NECK: Without adenopathy or JVD. ABDOMEN: Protuberant with active bowel sounds. MUSCULOSKELETAL: Tenderness in her lumbosacral region that radiates into her legs and right groin, tenderness in her knees bilaterally with no edema present. She has decreased range of motion in her shoulders, have increased pain with movement. She is in a wheelchair and her lower extremity strength are deconditioned bilaterally. IMPRESSION: 1. Chronic low back pain with multiple pain generators. 2. Osteoarthritis of multiple joints. 3. History of cerebrovascular accident with resolution. 4. 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 5. Complex medical management utilizing opioid medications. PLAN: 1. We discussed treatment options with the patient today. The patient believes her medications are very beneficial allowing her to be as active as she would like, participate in activities of daily living. She does not have any adverse reactions as long as she takes Dulcolax on a daily basis. We will have Dr. Harding send her MS Contin 15 mg, #90 to release 12/29/2019 and 01/26/2020 as well as her oxycodone 5/325, #120 to release today and 01/19/2020. 2. The patient does safeguard her meds at all times. Reminded her of this. 3. The patient is seen in collaboration with Dr. Martin Harding who she will see at her next visit. <ELECTRONICALLY SIGNED> By: Viky Adhikari 12/21/20 1347 [id number] Viky el
== END ==
LOC: PAIN 06:51
PROVIDERS: ATTEND Clinical Nurse Specialist Adult Health
DX: M54.16 Radiculopathy, lumbar region (principal); G89.29 Other chronic pain; M19.90 Unspecified osteoarthritis, unspecified site; M25.511 Pain in right shoulder; M25.512 Pain in left shoulder; F11.20 Opioid dependence, uncomplicated; Z86.73 Personal history of transient ischemic attack (TIA), and cerebral infarction without residual deficits; Z88.8 Allergy status to other drugs, medicaments and biological substances; Z79.899 Other long term (current) drug therapy

== ENCOUNTER → 2021-04-26 | Outpatient (CLI) | payer OTHER ==
[~2021-04-26] VITALS: Ht 160 cm; Wt 84.8 kg
[~2021-04-26] MED LIST changes: +STOOL SOFTENER1 EAC2 PO; +VOLTAREN ARTHRI20 GM TOP
[2021-04-26 09:08] VITALS: BP 155/79
--- NOTE | 2021-04-26 09:14 | NUR ---
Pain Clinic Assessment: 1. History of Osteoarthritis: BILATERAL LEGS spine History of Rheumatoid Arthritis: Not Applicable 2. Height: 5 ft. 3 in. 160.0 cm. Weight: 187.0 lb. oz. 84.823 kg. Patient's BMI: 33.1 3. Vital Signs: BP: 155/79 Pulse: 69 Resp: 16 Temp: 02 Sat: 93 ECG Mon: 4. Pain Intensity: 7 5. Fall Risk: Dizziness: N Needs help standing or walking: N Fallen in the last 3 months: N Fall risk comments: FELL 2 MONTHS AGO 6. Patient on Blood Thinner: None 7. History of Hypertension: Y 8. Opioid Therapy greater than 6 weeks: Y Opiate Contract Signed: 06/07/16 9. Risk Assessment Tool Provided: 1-low 10. Functional Assessment Tool: 11. Recreational Drug Use: Never Drug Type: Tobacco Use: Never Smoker Tobacco Type: Amount or Packs/day: How Many Years: Alcohol Use: No Frequency: Quant:
== END ==
LOC: PAIN 06:56
PROVIDERS: ATTEND Anesthesiology Pain Medicine
DX: M54.5 Low back pain (principal); M25.512 Pain in left shoulder; G89.29 Other chronic pain; M25.551 Pain in right hip; M19.90 Unspecified osteoarthritis, unspecified site; Z79.891 Long term (current) use of opiate analgesic; Z86.73 Personal history of transient ischemic attack (TIA), and cerebral infarction without residual deficits; Z79.899 Other long term (current) drug therapy

== ENCOUNTER → 2021-06-23 | Outpatient (CLI) | payer OTHER ==
[~2021-06-23] VITALS: Ht 160 cm; Wt 82.6 kg
[~2021-06-23] MED LIST changes: +CRANBERRY CONC500 MG PO; +PROBIOTIC1 EAC7 PO
[2021-06-23 10:30] VITALS: BP 137/71
--- NOTE | 2021-06-23 10:34 | NUR ---
Pain Clinic Assessment: 1. History of Osteoarthritis: BILATERAL LEGS spine History of Rheumatoid Arthritis: Not Applicable 2. Height: 5 ft. 3 in. 160.0 cm. Weight: 182.0 lb. oz. 82.555 kg. Patient's BMI: 32.2 3. Vital Signs: BP: 137/71 Pulse: 71 Resp: 18 Temp: 02 Sat: 94 ECG Mon: 4. Pain Intensity: 7 5. Fall Risk: Dizziness: N Needs help standing or walking: Y Fallen in the last 3 months: N Fall risk comments: FELL 2 MONTHS AGO 6. Patient on Blood Thinner: None 7. History of Hypertension: Y 8. Opioid Therapy greater than 6 weeks: Y Opiate Contract Signed: 06/07/16 9. Risk Assessment Tool Provided: 1-low 10. Functional Assessment Tool: 11. Recreational Drug Use: Never Drug Type: Tobacco Use: Never Smoker Tobacco Type: Amount or Packs/day: How Many Years: Alcohol Use: No Frequency: Quant:
== END ==
LOC: PAIN 09:25
PROVIDERS: ATTEND Clinical Nurse Specialist Adult Health
DX: M19.90 Unspecified osteoarthritis, unspecified site (principal); G89.29 Other chronic pain; M25.511 Pain in right shoulder; M25.512 Pain in left shoulder; Z79.891 Long term (current) use of opiate analgesic; Z79.899 Other long term (current) drug therapy; Z86.73 Personal history of transient ischemic attack (TIA), and cerebral infarction without residual deficits

== ENCOUNTER → 2021-08-25 | Outpatient (CLI) | payer OTHER ==
[~2021-08-25] VITALS: Ht 160 cm; Wt 78.0 kg
[2021-08-25 09:46] VITALS: BP 164/80
== END ==
LOC: PAIN 07:05
PROVIDERS: ATTEND Clinical Nurse Specialist Adult Health
DX: G89.29 Other chronic pain (principal); M54.16 Radiculopathy, lumbar region; M25.512 Pain in left shoulder; M25.511 Pain in right shoulder; Z88.8 Allergy status to other drugs, medicaments and biological substances; Z79.899 Other long term (current) drug therapy

== ENCOUNTER → 2021-10-25 | Outpatient (CLI) | payer OTHER ==
[~2021-10-25] VITALS: Ht 160 cm; Wt 78.0 kg
[2021-10-25 09:25] VITALS: BP 138/96
--- NOTE | 2021-10-25 09:39 | NUR ---
Pain Clinic Assessment: 1. History of Osteoarthritis: BILATERAL LEGS spine History of Rheumatoid Arthritis: Not Applicable 2. Height: 5 ft. 3 in. 160.0 cm. Weight: 172.0 lb. oz. 78.019 kg. Patient's BMI: 30.5 3. Vital Signs: BP: 138/96 Pulse: 90 Resp: 14 Temp: 02 Sat: 91 ECG Mon: 4. Pain Intensity: 8 5. Fall Risk: Dizziness: N Needs help standing or walking: Y Fallen in the last 3 months: Y Fall risk comments: STATES SHE FELL LAST FIRDAY. SHE DOES NOT REMEMBER THE INCIDENT,[facility] TOOK HER TO [facility]. LEFT SIDE OF HER BODY IS BRUISED AND SHE HAS A SIGNIFICANT LECERATION OF THE LEFT HAND 6. Patient on Blood Thinner: None 7. History of Hypertension: Y 8. Opioid Therapy greater than 6 weeks: Y Opiate Contract Signed: 06/07/16 9. Risk Assessment Tool Provided: 1-low 10. Functional Assessment Tool: 11. Recreational Drug Use: Never Drug Type: Tobacco Use: Never Smoker Tobacco Type: Amount or Packs/day: How Many Years: Alcohol Use: No Frequency: Quant:
== END ==
LOC: PAIN 06:56
PROVIDERS: ATTEND Anesthesiology Pain Medicine
DX: G89.29 Other chronic pain (principal); M54.50 Low back pain, unspecified; M25.512 Pain in left shoulder; M25.551 Pain in right hip; M46.1 Sacroiliitis, not elsewhere classified; Z88.8 Allergy status to other drugs, medicaments and biological substances; Z79.899 Other long term (current) drug therapy